=== PATIENT | female | born 1955 | race Caucasian/White ===

== ENCOUNTER 2021-11-12 14:42 | Outpatient (CLI) | payer MEDICARE, SELFPAY ==
--- NOTE | ~2021-11-12 | US_ITS ---
US abdomen limited DATE: 11/12/2021 15:16 INDICATION: Right upper quadrant intermittent abdominal pain TECHNIQUE: Real-time imaging and Doppler analysis of the abdomen including liver, pancreas, gallbladd er COMPARISON: None FINDINGS: No hepatic or pancreatic space-occupying mass lesion is detected. Normal hepatopedal portal venous flow direction. Approximately 5 mm or smaller 6 nonmobile nonshadowing filling defects of the gallbladder are noted, suggesting polyps. Otherwise no gallbladder wall thickening is noted. The common bile duct measures 3 mm, normal. IMPRESSION: Probable 5 mm or smaller gallbladder polyps Reviewed, dictated and finalized at Location A. Reviewed, dictated and finalized at location B. GEMENT QUALITY CONSULTANT
== END 2021-11-12 14:43 | disposition home or self-care (01) ==
PROVIDERS: PCP Family Medicine; Visit Provider Nurse Practitioner Gerontology
DX: R10.11 Right upper quadrant pain (principal)
CPT/HCPCS: 76705

== ENCOUNTER 2022-05-16 07:34 | Outpatient (CLI) | payer MEDICARE, SELFPAY ==
--- NOTE | ~2022-05-16 | US_ITS ---
US right upper quadrant INDICATION: Bladder pain. PROCEDURE: Realtime right upper abdominal ultrasound. COMPARISON: Ultrasound dated 11/12/2021 FINDINGS: The pancreas is normal without focal mass or pancreatic ductal dilation. Liver echotexture is normal without focal mass or intrahepatic biliary dilatation. There is normal directional flow i n the portal vein. There are multiple gallbladder polyps measuring 5 mm or less. Common bile duct measures 3.5 mm. No sonographic Fam's sign. IMPRESSION: 1: Gallbladder polyps measuring 5 mm or less. Reviewed, dictated and finalized at location A.
== END 2022-05-16 07:35 | disposition home or self-care (01) ==
PROVIDERS: PCP Family Medicine
DX: K82.4 Cholesterolosis of gallbladder (principal)
CPT/HCPCS: 76705

== ENCOUNTER 2022-10-26 12:26 | Outpatient (CLI) | payer MEDICARE, SELFPAY ==
--- NOTE | ~2022-10-26 | XR_ITS ---
XR shoulder RT min 2V DATE: 10/26/2022 12:53 INDICATION: Acquired deformity at the top of the shoulder TECHNIQUE: 4 views of right shoulder COMPARISON: None FINDINGS: There is mild degenerative spurring at the right acromioclavicular joint. No fracture or dislocation, periosteal reaction or bone destruction or abnormal soft tissue calcifica tion of the right shoulder. Degenerative spurring of the thoracic spine IMPRESSION: Mild degenerative change of the right acromioclavicular joint Reviewed, dictated and finalized at location B. F MERCHANDISING OFFICER
== END 2022-10-26 12:27 | disposition home or self-care (01) ==
PROVIDERS: PCP Family Medicine; Visit Provider Nurse Practitioner Gerontology
DX: M21.929 Unspecified acquired deformity of unspecified upper arm (principal); E78.5 Hyperlipidemia, unspecified; D70.9 Neutropenia, unspecified; M19.011 Primary osteoarthritis, right shoulder
CPT/HCPCS: 73030

== ENCOUNTER 2022-10-28 13:39 | Outpatient (CLI) | payer MEDICARE, SELFPAY ==
--- NOTE | ~2022-10-28 | DEXA_ITS ---
Bone Density Report Name: TAMIKO MARTNII Age: 67 Sex: Female Ethnicity: White Date of : 1955 Indication: postmenopausal; screening for osteoporosis; height loss; Referring Provider: LATANYA REEDER Study: Bone densitometry was performed. Exam Date: October 28, 2022 Accession number: [id number] Bone Density: Region BMD T-score Z-score Classification AP Spine(L1, L4) 1.186 1.4 3.3 Normal Femoral Neck (Left) 0.867 0.2 1.8 Normal Total Hip (Left) 1.076 1.1 2.5 Normal World Health Organization criteria for BMD impression classify patients as: Normal (T-score at or above -1.0), Osteopenia (T-score between -1.0 and -2.5), or Osteoporosis (T-score at or below -2.5). 10-year Fracture Risk: FRAX not reported because: All T-scores for Spine Total, Hip Total, Femoral Neck at or above -1.0 Clinical Information Provided by Patient: Patient maximum height was 66 Menopause Age: 55 Drinks caffeinated beverages Onset of menses at age 11 Number of children 2 Impression: The patient has normal bone mass. Discussion: BONE DENSITY IS ABOVE THE MINIMUM DESIRABLE LEVEL AT ALL SKELETAL SITES TESTED. This patient?s bone mineral density is above the minimum desirable level (T-score -1.0 or better) at all sites measured. The patient should follow a healthful lifestyle (good nutrition with adequate calcium and vitamin D, and appropriate weight-bearing exercise). Follow-Up: Consider repeating this study in 5 years or sooner if there is some new clinical indication. Reported by: MARGO on 10/28/2022 2:08:00 PM. Reviewed, dictated and finalized at location Nuha GROSS
== END 2022-10-28 13:40 | disposition home or self-care (01) ==
LOC: ANHIMG 13:43
PROVIDERS: PCP Family Medicine; Visit Provider Nurse Practitioner Gerontology
DX: Z78.0 Asymptomatic menopausal state (principal); E78.5 Hyperlipidemia, unspecified; D70.9 Neutropenia, unspecified
CPT/HCPCS: 77080

== ENCOUNTER 2023-06-19 09:26 | Outpatient (CLI) | payer MEDICARE, SELFPAY ==
--- NOTE | ~2023-06-19 | US_ITS ---
US right upper quadrant INDICATION: PROCEDURE: Realtime right upper abdominal ultrasound. COMPARISON: No prior studies for comparison. FINDINGS: The pancreas is normal without focal mass or pancreatic ductal dilation. Liver echotexture is normal without focal mass or intrahepatic biliary dilatation. There is normal directional flow i n the portal vein. There are multiple gallbladder polyps, largest measuring 5 mm. Common bile duct measures 7.7 mm. No sonographic Fam's sign. IMPRESSION: 1: Gallbladder polyps measuring up to 5 mm. 2: Mildly dilated common bile duct measuring 7.7 mm, nonspecific. Reviewed, dictated and finalized at location B.
== END 2023-06-19 09:27 | disposition home or self-care (01) ==
PROVIDERS: PCP Family Medicine
DX: K82.4 Cholesterolosis of gallbladder (principal)
CPT/HCPCS: 76705

== ENCOUNTER 2024-06-20 07:42 | Outpatient (CLI) | payer MEDICARE, SELFPAY ==
--- NOTE | ~2024-06-20 | US_ITS ---
EXAMINATION: US right upper quadrant DATE: 06/20/2024 08:53 INDICATION: Gallbladder polyps TECHNIQUE: Multiple grayscale and Doppler ultrasound images of the abdomen were obtained. COMPARISON: 06/19/2023 FINDINGS: The pancreatic head and body are normal in appearance. The pancreatic tail is not visualized. The vi sualized proximal to mid inferior vena cava and aorta are normal. Liver has normal echogenicity and c ontour, with a smooth surface. No liver lesion identified. No intrahepatic biliary duct dilation susp ected. Portal venous flow was seen in the hepatopetal, normal direction and has normal Doppler wavefo rm. Again seen are a few non shadowing gallbladder polyps measuring up to 6 mm in maximal diameter. N o evident shadowing cholelithiasis. There is increasing dilation the common bile duct which now measu res up to 1.4 cm in maximal diameter in the mid duct. The distal duct is obscured. IMPRESSION: 1. No significant interval change in a few small gallbladder polyps measuring up to 6 mm. 2. Increasing dilation the common bile duct now measuring up to 1.4 similar without evident cholelith iasis/choledocholithiasis. Correlate with liver function tests and could consider further evaluation with MRCP. Reviewed, dictated and finalized at location B. IMPRESSION: 1. No significant interval change in a few small gallbladder polyps measuring u p to 6 mm. 2. Increasing dilation the common bile duct now measuring up to 1.4 similar wit hout evident cholelithiasis/choledocholithiasis. Correlate with liver function tests and could consider further evaluation with MRCP.
== END 2024-06-20 07:43 | disposition home or self-care (01) ==
PROVIDERS: PCP Family Medicine
DX: K82.4 Cholesterolosis of gallbladder (principal)
CPT/HCPCS: 76705

== ENCOUNTER 2025-04-25 10:57 | Outpatient (CLI) | payer MEDICARE, SELFPAY ==
--- NOTE | ~2025-04-25 | XR_ITS ---
EXAM: XR hand LT 2V DATE: 04/25/2025 11:13 HISTORY: M79.645 - Pain in left finger(s) 4TH DIGIT, AFTER INJURY . COMPARISON: None available. FINDINGS: Decreased mineralization. No fracture or dislocation. No lytic or blastic lesion. Scattere d osteoarthritic changes, moderate at the first CMC joint and third DIP joint. No erosion or perioste al change. Soft tissues within normal limits. IMPRESSION: No acute osseous finding in the left hand. Reviewed, dictated and finalized at location K.
--- OUTSIDE RECORDS SUMMARY | 2025-04-25 11:03 | XMS_ITS | Encounter Summary ---
Author Organization [facility] Address [address] [place] [id number] Care Team Providers Care Financial Processing Clerk Name Role Phone Christelle Chambers MD Primary Care Provider [phone]- [phone] Encounter Details Date Type Department Care Team (Late st Contact Info) Description 03/31/2020 Prep for Procedure [facility] [address] [place], [place] [id number] Orestes Mena MD [address] [address] Social History Tobacco Use Types Packs/Day Years Used Date Smoking Tobacco: Never Smokeless Tobacco: Never Alcohol Use Standard Drinks/Week Comments Not Asked 0 (1 standard drink = 0.6 oz pur e alcohol) Occasionally Comments Unknown Sex and Gender Information Value Date Recorded Sex Assigned at Not on file Legal Sex Female 7:50 PM CDT Gender Identity Not on file Sexual Orientation Not on file COVID-19 Exposure Response Date Recorded In the last month, have you been in contact with someone who was confirmed or suspected to have Coronavirus / COVID-19? No / Unsure 03/19/2020 1:13 PM CDT documented as of this encounter Plan of Treatment Not on file documented as of this encounter Visit Diagnoses Diagnosis Preop testing- Primary Preoperative examination, unspecified documented in this encounter Additional Health Concerns Infection Onset Date Last Indicated Resolved Time COVID-19 Rule Out 04/07/2020 04/07/2020 04/07/2020 2:28 PM CDT documented as of this encounter Care Teams Financial Processing Clerk Relationship Specialty Start Date End Date Christelle Chambers MD [address] [facility] [address] [facility] [address] [place] [id number] PCP - General 02/27/17 documented as of this encounter
--- OUTSIDE RECORDS SUMMARY | 2025-04-25 11:03 | XMS_ITS | Clinical Summary ---
Author Organization [facility] Address [address] [place] [address] Care Team Providers Care Fabric Worker Leader Name Role Phone Christelle Mcfadden MD Primary Care Provider [phone]- [phone] Allergies Active Allergy Reactions Criticality Noted Date Comments Lisinopril Unknown 06/07/2021 Medications Eszopiclone 3 MG Tab Active esomeprazole 20 MG capsule Take 1 capsule (20 mg total) by mouth every morning before breakfast. Active losartan-hydroC HLOROthiazide 50-12.5 MG tablet Take 1 tablet by mouth daily. 05/30/2021 Active montelukast 10 MG tablet Take 1 tablet (10 mg total) by mouth daily. 05/13/2021 Active rosuvastatin 5 MG tablet TAKE 1 TABLET BY MOUTH EVERY EVENING WITH A EVENING MEAL 05/14/2021 Active aspirin EC (ECOTRIN) 81 MG tablet Take 1 tablet (81 mg total) by mouth daily. Active Turmeric (QC TUMERIC COMPLEX OR) Active MAGNESIUM GLUCONATE OR Active esomeprazole (NEXIUM) 20 MG capsuleIndicati ons:History of Maxwell's esophagus Take 1 capsule (20 mg total) by mouth 2 (two) times daily. 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 Overview (07/10/2023): Added automatically from request for surgery [id number] Screening for malignant neoplasm of colon 2019 Overview (03/20/2020): Added automatically from request for surgery [id number] Acid reflux 03/20/2020 Overview (03/20/2020): Added automatically from request for surgery [id number] Ankle mass, right 01/02/2019 Aftercare following right hip joint replacement surgery 01/02/2019 Osteoarthritis of right hip 01/01/2018 Right hip pain 12/05/2016 Family History Medical History Relation Comments Heart Disease Father hypertension Father Dementia Mother diverticulitis Sister mesenteric artery dx Sister Relation Status Comments Father Mother Sister Social History Tobacco Use Types Packs/Day Years Used Date Smoking Tobacco: Former Cigarettes Q uit: 11/1984 Smokeless Tobacco: Never Alcohol Use Standard Drinks/Week Comments Not Asked 0 (1 standard drink = 0.6 oz pur e alcohol) Occasionally PHQ-2 Answer Date Recorded Patient Health Questionnaire-2 Score 0 07/07/2023 Comments No Sex and Gender Information Value Date Recorded Sex Assigned at Not on file Legal Sex Female 7:50 PM CDT Gender Identity Not on file Sexual Orientation Not on file Last Filed Vital Signs Vital Sign Reading Time Taken Comments Blood Pressure 155/70 10/04/2023 8:45 AM ZIPPER LINING FOLDER Pulse 75 10/04/2023 8:25 AM ZIPPER LINING FOLDER Temperature 35.8 C (96.5 F) 10/04/2023 7:10 AM ZIPPER LINING FOLDER Respiratory Rate 18 10/04/2023 8:25 AM ZIPPER LINING FOLDER Oxygen Saturation 98% 10/04/2023 8:45 AM ZIPPER LINING FOLDER Inhaled Oxygen Concentration - - Weight 83.9 kg (185 lb) 09/25/2023 10:08 AM ZIPPER LINING FOLDER Height 167.6 cm (5' 6) 09/25/2023 10:08 AM ZIPPER LINING FOLDER Body Mass Index 29.86 09/25/2023 10:08 AM ZIPPER LINING FOLDER Plan of Treatment Health Maintenance Due Date Last Done Comments EGD-Maxwell's Surveillance 1955 Hepatitis C 1972 DTaP, Tdap and Td Vaccines (1 - Tdap) 1973 Pneumococcal Vaccine: 50+ Years (1 of 1 - PCV) 2004 Zoster Vaccines (1 of 2) 2004 Annual Medicare Wellness Visit 2019 Dexa Scan (General) 2019 COVID-19 Vaccine ( - 2023-25 season) 2024 PHQ-2 (Physician Byers) 10/09/2024 07/07/2023 Mammogram Screening 07/18/2026 07/18/2024, 07/12/2023, 06/20/2022, Additional history exists RSV Immunization or 60+ Years (1 - 1-dose 75+ series) 2029 Colorectal Cancer Screening Colonoscopy (10 Years) 04/08/2030 04/08/2020 Meningococcal B Vaccine Aged Out No l onger eligible based on patient's age to complete this topic Meningococcal Vaccine Aged Out No catie whitney eligible based on patient's age to complete this topic RSV Immunizations Under 20 Months Aged Out No longer eligible based on patient's age to complete this topic Medical Devices Implanted Type Area Senior Scrum Master Device Identifier Shelf Expiration Date Model / Serial / Lot Hip Components Hip Components Procedures Procedure Name Priority Date/Time Associated Diagnosis Comments MG SCREENING W FARRAH SHARDA DIGI Routine 07/18/2024 2:54 PM CDT Encounter for screening mammogram for malignant neoplasm of breast from Last 3 Months or Most Recently Relevant to Health Maintenance Results * MG SCREENING W FARRAH SHARDA DIGI (07/18/2024 2:54 PM CDT) Anatomical Region Laterality Modality Breast Bilateral Mammography 07/18/2024 4:12 PM CDT Impressions 07/18/2024 4:15 PM CDT ===== IMPRESSION: ===== 1. Stable mammographic appearance with no new findings to suggest malignancy in either breast. Assessment: ACR BI-RADS 2 - BENIGN FINDING(S) Recommendation: 1:Routine Screening Bilateral Comments: Ordered By: CHRISTELLE MCFADDEN Interpreted By: Fina Bello, 07/18/2024 4:12 PM Narrative 07/18/2024 4:15 PM CDT [facility] [address] [place] [address] EXAMINATION: Digital bilateral screening mammogram with 3-D tomosynthesis EXAM DATE/TIME: 07/18/2024 2:24 PM REASON FOR EXAM: SCREENING COMPARISON: 06/20/2022. 07/12/2023. Technique: Digital screening mammography of both breasts was performed in addition to 3-D Tomosynthesis technique. This study was read with the assistance of a computer-aided detection system. Tissue density: There are scattered areas of fibroglandular density. Findings: There is no new focal asymmetry, dominant mass lesion, area of skin thickening, or cluster of suspicious appearing calcifications in either breast to suggest malignancy. Christelle Mcfadden MD MAMMO Final Resu lt from Last 3 Months or Most Recently Relevant to Health Maintenance Insurance [facility] Care Teams Fabric Worker Leader Relationship Specialty Start Date End Date Christelle Mcfadden MD [address] [facility] [address] [place] [address] PCP - General 02/27/17
--- OUTSIDE RECORDS SUMMARY | 2025-04-25 11:04 | XMS_ITS | Clinical Summary ---
Author Organization [facility] Address [address] [address] Phone Care Team Providers Care English And Reading Instructor Name Role Phone Christelle Chambers MD Primary Care Provider Juan M Friedman MD Unavailable [phone] Allergies Active Allergy Reactions Criticality Noted Date Comments Lisinopril Swelling Medium 06/07/2021 Tongue and lip swelling Medications losartan-hydroC HLOROthiazide (HYZAAR) 50-12.5 mg per tablet Take 1 tablet by mouth daily 05/30/2021 Active montelukast (SINGULAIR) 10 mg tablet Take 1 tablet (10 mg total) by mouth daily 05/13/2021 Active aspirin 81 mg enteric coated tablet Take 1 tablet (81 mg total) by mouth daily Active eszopiclone (LUNESTA) 3 mg tablet Take 1 tablet (3 mg total) by mouth nightly as needed Active albuterol HFA (PROVENTIL HFA,VENTOLIN HFA,PROAIR HFA) 90 mcg/actuation inhaler Inhale 2 puffs every 6 (six) hours as needed for wheezing Active [id number] -Lmfolate-algal 27 mg iron-1.13 mg-581.92 mg capsule Take 1 tablet by mouth daily Active rosuvastatin (CRESTOR) 5 mg tablet TAKE 1 TABLET BY MOUTH EVERY EVENING WITH A EVENING MEAL 05/14/[address] (PROTONIX) 40 mg EC tablet Take 1 tablet (40 mg total) by mouth every morning Active phentermine 37.5 mg capsule Take 1 capsule (37.5 mg total) by mouth every morning Active oxyCODONE-aceta minophen (PERCOCET) 5-325 mg per tabletIndicatio ns:Pain Take 1-2 tablets by mouth every 6 (six) hours as needed for pain 8 tablet 02/19/2025 Active Active Problems Problem Noted Date Diagnosed Date Essential hypertension 06/07/2021 Resolved Problems Problem Noted Date Diagnosed Date Resolved Date LVH (left ventricular hypertrophy) 06/07/2021 01/30/2025 Encounters Date Type Department Care Team Description 02/19/2025 7:30 AM CDT - 02/19/2025 9:15 AM CDT Surgery [facility] [address] [place] [address] Juan M Friedman MD ROBOTIC ASSISTSED LAPAROSCOPIC CHOLECYSTECTOMY WITH INDOCYANINE GREEN 02/19/2025 7:27 AM CDT Anesthesia Event [facility] [address] [place] [address] Twan Gregg MD Halverstadt, Matthew Edward, MD 02/19/2025 5:34 AM CDT - 02/19/2025 10:24 AM CDT Hospital Encounter [facility] [address] [place] [address] Juan M Friedman MD Gallbladder polyp Discharge Disposition: Discharge to home or self care 02/10/2025 11:20 AM CDT Pre-Admission Testing [facility] Pre Admit Testing [address] [place] [address] Pre-op testing 02/07/2025 Orders Only [facility] Pre Admit Testing [address] [place] [address] Radha Jameson RN Pre-op testing (Primary Dx) from Last 3 Months Surgical History Surgery Date Site/Laterality Comments BUNIONECTOMY TOTAL HIP ARTHROPLASTY Right Medical History Medical History Date Comments Hypertension Hyperlipidemia Acid indigestion Arthritis Gout LVH (left ventricular hypertrophy) 06/07/2021 Essential hypertension 06/07/2021 Motion sickness Allergic rhinitis Family History Medical History Relation Name Comments Atrial fibrillation Father Peripheral vascular disease Father Kidney disease Mother Mesentenic artery disease Sister 1 Relation Name Status Comments Father (Age 80) Mother (Age 83) Sister 1 (Age 41) Sister 2 (Age 69) Sister 3 (Age 77) Social History Tobacco Use Types Packs/Day Years Used Date Smoking Tobacco: Former Cigarettes Q uit: 1985 Smokeless Tobacco: Never Tobacco Cessation:Counseling Given: Not Answered AUDIT-C Answer Date Recorded Q1: How often do you have a drink containing alc ohol? Monthly or less 02/19/2025 Q2: How many drinks containi ng alcohol do you have on a typical day when you are drinking? 1 or 2 02/19/2025 Q3: How often do you have si x or more drinks on one occasion? Never 02/19/2025 Personal Safety Answer Date Recorded Have you ever been in or are you currently in a harmful physical or emotional relationship or is someone making you feel afraid or unsafe? 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 Gender Identity Not on file Sexual Orientation Not on file Obstetrics History Last Filed Vital Signs Vital Sign Reading Time Taken Comments Blood Pressure 153/88 02/19/2025 10:15 AM CDT Pulse 65 02/19/2025 10:15 AM CDT Temperature 36.4 C (97.5 F) 02/19/2025 9:30 AM CDT Respiratory Rate 16 02/19/2025 10:15 AM CDT Oxygen Saturation 98% 02/19/2025 10:15 AM CDT Inhaled Oxygen Concentration - - Weight 87.5 kg (193 lb) 02/19/2025 5:49 AM CDT Height 167.6 cm (5' 6) 02/19/2025 5:49 AM CDT Body Mass Index 31.15 02/19/2025 5:49 AM CDT Plan of Treatment Health Maintenance Due Date Last Done Comments Colon Cancer Screening-Colonoscopy 1955 Depression Screening 1955 Fall Risk Assessment 1955 Hepatitis C Screening 1955 Osteoporosis Screening-Bone Density Scan 1955 DTaP/Tdap/Td Vaccine (1 - Tdap) 1965 Hepatitis B Screening 1972 Pneumococcal vaccine 65+ (1 of 1 - PCV) 2004 Zoster Vaccine (1 of 2) 2004 Well Visit 65+ 2019 Influenza Vaccine (#1) 2025 06/24/2020 Breast Cancer Screening-Mammogram 07/18/2025 07/18/2024, 07/18/2024, 07/12/2023, Additional history exists Procedures Procedure Name Priority Date/Time Associated Diagnosis Comments SURGICAL PATHOLOGY Routine 02/19/2025 7: 58 AM CDT Gallbladder polyp FL AN PROCEDURE PLACEHOLDER Routine 02/19/2025 7:53 AM CDT FL AN ELECTIVE ENDOTRACHEAL AIRWAY Routine 02/19/2025 7:53 AM CDT XI CHOLECYSTECTOMY, MULTIPORT - LAPAROSCOPIC ROBOTIC 02/19/2025 7:27 AM CDT GALLBLADDER POLYP EGFR Routine 02/10/2025 11:44 AM CDT Pre-op testing BASIC METABOLIC PANEL Routine 02/10/2025 11:44 AM CDT Pre-op testing ECG 12-LEAD Routine 02/10/2025 11:43 AM CDT Pre-op testing from Last 3 Months Results * Surgical pathology (02/19/2025 7:58 AM CDT) Tissue (Gallbladder) 02/19/2025 7:58 AM CDT Narrative PATHOLOGY [facility] - 02/21/2025 5:53 PM CDT [facility] Department of Pathology [address] [place] [address] Note to Patients: This report may contain a detailed description of human tissue sent by a health care provider to the laboratory for pathologic evaluation. The content of this report is essential for diagnosis and may provide important critical findings. This information may be unfamiliar to patients to review without a medical professional present. It is advised that the patient review this report in the presence of a health care provider who can answer questions and explain the details. Final Report Patient Name: KANDIS MARTINI : 1955 (Age: 69) Gender: F Address: [address] [place] [address] Hospital #: [id number] Service: Surgery Location: Patient Type: [facility] OUTPATIENT Taken: 02/19/2025 Received: 02/19/2025 Accessioned: 02/19/2025 Reported: 02/21/2025 Physician(s): Jorge Lopez M.D. Diagnosis: Gallbladder, cholecystectomy: -Cholesterol polyps; negative for dysplasia or carcinoma. Melissa Ramirez MD, PHD Report Electronically Reviewed and Signed Out By Melissa Ramirez MD, PHD 02/21/2025 17:53:24 Specimen(s) Received: A: Gallbladder Microscopic Description: Unless gross-only is specified, the final diagnosis for each specimen is based on a microscopic examination of each tissue sample. Clinical History: The patient is a 69-year-old woman with a gallbladder polyp. Operative procedure: robotic assisted laparoscopic cholecystectomy. Gross Description Received in a single formalin filled container labeled with the patient's identifiers and gallbladder is an 8.4 x 3.4 x 3.3 cm intact gallbladder with a glistening, purple-benítez serosa and stapled cystic duct. The wall thickness measures 0.1-0.2 cm and the mucosa is green and velvety with multiple (approximately 30) nodular, yellow polyps in the body and neck, ranging in diameter from 0.1 to 0.4 cm. There are no stones located within the gallbladder or specimen container. Labeled A1 including cystic duct margin, representing multiple polyps. Jar 1. mns2/02/19/2025 12:11 Dionne Gonzalez MS, PA (ASC Microscopic slide review and interpretation for this case was performed at [facility], Department of Surgical Pathology, [address] [facility] [address], [id number], [place] [address] CLIA # [id number] us Juan M Friedman MD LAB PATHOLOGY ORDERABLES Fin al Result PATHOLOGY [facility] * FL AN ELECTIVE ENDOTRACHEAL AIRWAY, FL AN PROCEDURE PLACEHOLDER (02/19/2025 7:53 AM CDT) Narrative Susi Fuentes CRNA - 02/19/2025 7:53 AM CDT Susi Fuentes CRNA 02/19/2025 7:54 AM Airway Patient location: OR Urgency: elective Date/time: 02/19/2025 7:33 AM Indications for airway management: anesthesia Difficult airway: no Staff: Supervising provider: Twan Gregg MD Placed by: CONSTRUCTION TEACHER: Susi Fuentes CRNA Emergent airway documentation: Risks and benefits discussed: yes Consent obtained: yes Consent given by: patient Airway prep: Preoxygenated: yes Patient position: sniffing Mask difficulty assessment: 2 - vent by mask + OA or adjuvant Spontaneous ventilation during airway: absent Sedation level during airway: deep Final airway details: Final airway type: endotracheal airway Tube type: ETT ETT size: 7.0 mm Cuffed: yes Technique used for successful ETT placement: direct laryngoscopy Devices/Methods used in placement: intubating stylet and cricoid pressure (for visualization) Insertion site: oral Blade type: Sugar Blade size: 3 Cormack-Lehane (direct): grade IIa - partial view of glottis Cuff volume: 8 mL Cuff inflated with: air Placement verified by: auscultation and CO2 detection Airway secured with: other (pink tape) Number of attempts: 1 Additional comments: No change in dentition from preoperative status. us Twan Gregg MD ANESTHESIA ORDERABLES Final Re sult * eGFR (02/10/2025 11:44 AM CDT) eGFR >90 >=60 mL/min/1. 73 m2 Comment: Interpretive Data Reference Interval Normal >/= 90 mL/min/1.73m2 Mildly decreased* 60 - 89 mL/min/1.73m2 Mildly to moderately decreased 45 - 59 mL/min/1.73m2 Moderately to severely decreased 30 - 44 mL/min/1.73m2 Severely decreased 15 - 29 mL/min/1.73m2 Kidney Failure < 15 mL/min/1.73m2 *Relative to young adult level Estimated glomerular filtration rate is determined by the 2021 CKD-EPI equation recommended by the National Kidney Foundation (A Unifying Approach to GFR Estimation: Recommendations of the NKF-ASK Task Force on Reassessing the Inclusion of Race in Diagnosing Kidney Disease, JASN 202). The CKD-EPI equation should not be used for patients with unstable renal function and has not been validated in children and those over 70. Current interpretive data was last reviewed 2021. Testing performed by: [address] [address] Blood 02/10/2025 11:4 4 AM CDT 02/10/2025 11:54 AM CDT us Jesu Ya DO LAB BLOOD ORDERABLES Final Re sult [facility] [address] [facility] Department [place] [address] * Basic metabolic panel (02/10/2025 11:44 AM CDT) Sodium 140 135 - 145 mmol/L Comment:Testing performed by : [address] [address] Potassium, pl 3.9 3.3 - 4.9 mmol/L ALYCE Comment:Testing performed by : [address] [address] Chloride 104 97 - 110 mmol/L ALYCE Comment:Testing performed by : [address] [address] CO2 24 22 - 32 mmol/L ALYCE Comment:Testing performed by : [address] [address] Anion gap 12 2 - 15 mmol/L ALYCE Comment:Testing performed by : [address] [address] BUN 10 6 - 25 mg/dL ALYCE Comment:Testing performed by : [address] [address] Creatinine 0.70 0.60 - 1.10 mg/dL ALYCE Comment:Testing performed by : [address] [address] Glucose 94 70 - 199 mg/dL ALYCE Comment: Interpretive Data Fasting glucose >/= 126 mg/dl is diagnostic for diabetes. Fasting is defined as no caloric intake for at least 8 hours. Fasting glucose between 100 mg/dl to 125 mg/dl is diagnostic of prediabetes. In a patient with classic symptoms of hyperglycemia or hyperglycemic crisis, a random glucose >/= 200 mg/dl is diagnostic for diabetes. In the absence of unequivocal hyperglycemia, results should be confirmed by repeat testing. The classification and Diagnosis of Diabetes Diabetes Care 2021; 46: S19-S40. Current interpretive data was last revised 2022. Testing performed by: [facility], [address] [place] [address]., [address] Calcium 9.7 8.5 - 10.3 mg/dL ALYCE Comment:Testing performed by : [address] [address] Blood 02/10/2025 11:4 4 AM CDT 02/10/2025 11:54 AM CDT us Jesu Ya DO LAB BLOOD ORDERABLES [facility] [address] [facility] Department [place] [address] * ECG 12 lead (02/10/2025 11:43 AM CDT) Ventricular Rate EKG/Min 65 BPM [facility] Atrial Rate 65 BPM [facility] FL-Interval (MSEC) 144 ms [facility] QRS-Interval (MSEC) 92 ms [facility] QT-Interval (MSEC) 418 ms [facility] QTc 434 ms [facility] P [place] 44 degrees [facility] R [place] -13 degrees [facility] T [place] -6 degrees [facility] Diagnosis Normal sinus rhythm RSR' or QR pattern in V1 suggests right ventricular conduction delay Voltage criteria for left ventricular hypertrophy T-wave changes No previous ECGs available Confirmed by SULTAN BOLAÑOS M.D. ([id number]) on 02/10/2025 5:42:40 PM [facility] 02/10/2025 11:4 3 AM CDT 02/10/2025 5:42 PM CDT Jesu Ya DO ECG ORDERABLES Final Result [facility] from Last 3 Months Insurance MEDICARE ADVANTAGE MEDICARE ADVANTAGE MEDICARE ADVANTAGE Care Teams English And Reading Instructor Relationship Specialty Start Date End Date Christelle Chambers MD [address] [place] [address] PCP - General Family Medicine 05/20/21 Juan M Friedman MD [address] [place] [address] Consulting Physician General Surgery 02/19/25
--- OUTSIDE RECORDS SUMMARY | 2025-04-25 11:04 | XMS_ITS | Referral Summary ---
Author Organization [facility] Address [address] [address] Phone Care Team Providers Care Commercial Account Executive Name Role Phone Christelle Chambers MD Primary Care Provider Juan M Friedman MD Unavailable [phone] Encounters Date Type Department Care Team Description 02/19/2025 7:30 AM CDT - 02/19/2025 9:15 AM CDT Surgery [facility] [place] [address] [place] [address] Juan M Friedman MD ROBOTIC ASSISTSED LAPAROSCOPIC CHOLECYSTECTOMY WITH INDOCYANINE GREEN 02/19/2025 7:27 AM CDT Anesthesia Event [facility] [place] [address] [place] [address] Twan Gregg MD Halver[place], Matthew Edward, MD 02/19/2025 5:34 AM CDT - 02/19/2025 10:24 AM CDT Hospital Encounter [facility] [place] [address] [place] [address] Juan M Friedman MD Gallbladder polyp Discharge Disposition: Discharge to home or self care 02/10/2025 11:20 AM CDT Pre-Admission Testing [facility] Pre Admit Testing [address] [place] [address] Pre-op testing 02/07/2025 Orders Only [facility] Pre Admit Testing [address] [place] [address] Radha Jameson RN Pre-op testing (Primary Dx) from Last 3 Months Allergies Active Allergy Reactions Criticality Noted Date [...] (six) hours as needed for wheezing Active xtopkgue67-ducw -Lmfolate-algal 27 mg iron-1.13 mg-581.92 mg capsule [...] Date LVH (left ventricular hypertrophy) 06/07/2021 01/30/2025 Social History Tobacco Use Types Packs/Day Years Used Date Smoking Tobacco: Former Cigarettes Q uit: 1984 Smokeless Tobacco: Never Tobacco Cessation:Counseling Given: Not [...] on file 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 Gender Identity Not on file Sexual Orientation [...] 02/19/2025 5:49 AM CDT Plan of Treatment Not on file Procedures Procedure Name Priority Date/Time Associated Diagnosis Comments SURGICAL PATHOLOGY Routine 02/19/2025 7: 58 AM CDT Gallbladder polyp SC AN PROCEDURE PLACEHOLDER Routine 02/19/2025 7:53 AM CDT SC AN ELECTIVE ENDOTRACHEAL AIRWAY Routine 02/19/2025 7:53 [...] (Gallbladder) 02/19/2025 7:58 AM CDT Narrative PATHOLOGY [facility] - 02/21/2025 5:53 PM CDT [facility] Department of Pathology [address] [place] [address] Note to Patients: This report may contain [...] : 1955 (Age: 69) Gender: F Address: [address] [place] [address] Hospital #: [id number] Service: Surgery Location: Patient Type: [facility] OUTPATIENT Taken: 02/19/2025 Received: 02/19/2025 Accessioned: 02/19/2025 [...] interpretation for this case was performed at [facility], Department of Surgical Pathology, [address] [facility] [address], [id number], [place] [id number] CLIA # [id number] us Juan M Friedman MD LAB PATHOLOGY ORDERABLES Fin al Result PATHOLOGY [facility] * SC AN ELECTIVE ENDOTRACHEAL AIRWAY, SC AN PROCEDURE PLACEHOLDER (02/19/2025 7:53 AM CDT) Narrative Susi Fuentes CRNA - 02/19/2025 7:53 AM CDT Susi Fuentes CRNA 02/19/2025 7:54 AM Airway Patient location: OR Urgency: elective Date/time: 02/19/2025 7:33 AM Indications for airway management: anesthesia Difficult airway: no Staff: Supervising provider: Twan Gregg MD Placed by: PHARMACOGENETICIST: Susi Fuentes CRNA Emergent airway documentation: Risks [...] glomerular filtration rate is determined by the 2020 CKD-EPI equation recommended by the National Kidney Foundation (A Unifying Approach to GFR Estimation: Recommendations of the NKF-ASK Task Force on Reassessing the Inclusion of Race in Diagnosing Kidney Disease, JASN 2020). The CKD-EPI equation should not be used for patients with unstable renal function and has not been validated in children and those over 70. Current interpretive data was last reviewed 2021. Testing performed by: [address] [address] Blood 02/10/2025 11:4 4 AM CDT 02/10/2025 11:54 AM CDT us Jesu Ya DO LAB BLOOD ORDERABLES Final [facility]ult [facility] [address] [facility] [place] [address] * Basic metabolic panel (02/10/2025 11:44 AM CDT) Sodium 140 135 - 145 mmol/L Comment:Testing performed by : [address] [address] Potassium, pl 3.9 3.3 - 4.9 mmol/L [facility] JACKSON Comment:Testing performed by : [address] [address] Chloride 104 97 - 110 mmol/L ALYCE Comment:Testing performed by : [address] [address] CO2 24 22 - 32 mmol/L ALYCE Comment:Testing performed by : [address] [address] Anion gap 12 2 - 15 mmol/L [facility]YCE Comment:Testing performed by : [address] [address] BUN 10 6 - 25 mg/dL ALYCE Comment:Testing performed by : [address] [address] Creatinine 0.70 0.60 - 1.10 mg/dL ALYCE Comment:Testing performed by : [address] [address] Glucose 94 70 - 199 mg/dL ALYCE [...] was last revised 2022. Testing performed by: [address] [address] Calcium 9.7 8.5 - 10.3 mg/dL [facility]YCE Comment:Testing performed by : [address] [address] Blood 02/10/2025 11:4 4 AM CDT 02/10/2025 11:54 AM CDT us Jesu Ya DO LAB BLOOD ORDERABLES Final Re sult [facility]ACK[facility] [address] [place] [address] * ECG 12 lead (02/10/2025 11:43 AM CDT) Ventricular Rate EKG/Min 65 BPM [facility] Atrial Rate 65 BPM [facility] SC-Interval (MSEC) 144 ms [facility] QRS-Interval (MSEC) 92 ms [facility] QT-Interval (MSEC) 418 ms [facility] QTc 434 ms [facility] P [place] 44 degrees [facility] R [place] -13 degrees [facility] T [place] -6 degrees [facility] Diagnosis Normal sinus rhythm RSR' or QR pattern in V1 suggests right ventricular conduction delay Voltage criteria for left ventricular hypertrophy T-wave changes No previous ECGs available Confirmed by SULTAN BOLAÑOS M.D. ([id number]) on 02/10/2025 5:42:40 PM [facility] 02/10/2025 11:4 3 AM CDT 02/10/2025 5:42 PM CDT us Jesu Ya DO ECG ORDERABLES Final Result [facility] from Last 3 Months Insurance [facility] MEDICARE ADVANTAGE [facility] Address: [facility] [address] [place] [address] [facility] MEDICARE ADVANTAGE [facility] Address: [address] [address] [place] [address] [facility] MEDICARE ADVANTAGE [facility] Address: [facility] [address] [place] [address] Care Teams Commercial Account Executive Relationship Specialty Start Date End Date Christelle Chambers MD [address] [place] [address] PCP - General Family Medicine 05/20/21 Juan M Friedman MD [facility] [address] Consulting Physician General Surgery 02/19/25
== END 2025-04-25 10:58 | disposition home or self-care (01) ==
PROVIDERS: PCP Family Medicine; Visit Provider Student in an Organized Health Care Education/Training Program
DX: M79.645 Pain in left finger(s) (principal)
CPT/HCPCS: 73120

== ENCOUNTER 2025-09-10 13:01 | Outpatient (CLI) | payer MEDICARE, SELFPAY ==
--- NOTE | ~2025-09-10 | US_ITS ---
EXAMINATION: US soft tissue groin RT, 09/10/2025 13:03 EMPLOYEE RELATIONS DIRECTOR HISTORY: R22.41 - Localized swelling, mass and lump, right lower limb Comparison: None Technique: Pacheco-scale and color Doppler images were obtained. Findings: Correlating with the palpable area there is a large complex solid focus measuring 12.2 x 4.7 x 11 cm with no increased flow. IMPRESSION: Complex solid-appearing lesion possibly a hematoma however other etiologies including neoplasm are not excluded. Clinical correlation is required. Contrast-enhanced CT or MRI is recommended Reviewed, dictated and finalized at location P. OYEE RELATIONS DIRECTOR IMPRESSION: Complex solid-appearing lesion possibly a hematoma however other et iologies including neoplasm are not excluded. Clinical correlation is required. Contrast-enhanced CT or MRI is recommended
== END 2025-09-10 13:02 | disposition home or self-care (01) ==
LOC: MICIMG 13:01
PROVIDERS: PCP Family Medicine; Visit Provider Student in an Organized Health Care Education/Training Program
DX: R22.41 Localized swelling, mass and lump, right lower limb (principal)
CPT/HCPCS: 76882

== ENCOUNTER 2025-09-10 15:52 | Outpatient (CLI) | payer MEDICARE, SELFPAY ==
--- NOTE | ~2025-09-10 | CT_ITS ---
EXAMINATION: CT femur RT w con COMPARISON: None HISTORY: R22.41 - Localized swelling, mass and lump, right lower limb TECHNIQUE: Axial images were obtained with IV contrast. Sagittal, coronal reconstruction images were obtained from the axial views. Omnipaque 370, [address] scan performed using dose optimization techniques including the following automated exposure control; adjustment of mA and/or kV; use of iterative reconstruction technique. Automatic exposure control was used to reduce radiation dose. Permanent radiation dose record is archived to PACS. FINDINGS: Moderate degenerative changes of the visualized lumbar spine and sacroiliac joints. Right arthroplasty appears intact. There is no acute fracture or dislocation. No lucency surrounding the hardware. Moderate degenerative changes of the knee joint The intrapelvic soft tissues appear unremarkable. The uterus is atrophic. There is no adnexal mass. Within the right obturator externus muscle there is abnormal density, artifact limits evaluation however the largest focus measures 6 x 4 cm. Within the proximal upper thigh similar-appearing abnormal density is noted in the anterior compartment of the thigh with the largest focus of abnormal density in the intramuscular location measuring 6.8 x 6 cm. Mild rim enhancement is noted although there is no air identified. There is no joint effusion demonstrated. No subcutaneous fluid collection. No subcutaneous air. No radiopaque foreign bodies are identified. IMPRESSION: Intramuscular areas of abnormal density detailed above which may reflect sequelae of previous trauma and resolving hemorrhage however clinical correlation is required, other etiologies are not excluded. If there is a history of fever these may represent abscesses. Neoplasm is considered unlikely but not excluded. Contrast-enhanced MRI is recommended to assess Reviewed, dictated and finalized at location P. CTOR OF DATABASE MARKETING IMPRESSION: Intramuscular areas of abnormal density detailed above which may re flect sequelae of previous trauma and resolving hemorrhage however clinical cor relation is required, other etiologies are not excluded. If there is a history of fever these may represent abscesses. Neoplasm is considered unlikely but not excluded. Contrast-enhanced MRI is recommended to assess
[2025-09-10 16:59] LABS: Estimated Glomerular Filt Rate > 60
--- OUTSIDE RECORDS SUMMARY | 2025-09-10 16:59 | XMS_ITS | Clinical Summary ---
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 Overview (07/10/2023): Added automatically from request for surgery [id number] Screening for malignant neoplasm of colon 2019 Overview (03/20/2020): Added automatically from request for surgery [id number] Acid reflux 03/20/2020 Overview (03/20/2020): Added automatically from request for surgery [id number] Ankle mass, right 01/02/2019 Aftercare following right hip joint replacement surgery 01/02/2019 Osteoarthritis of right hip 01/01/2018 Right hip pain 12/05/2016 Encounters Date Type Department Care Team Description 09/08/2025 Telephone [facility] [address] [place] [id number] Orestes Mena MD Surgery Questions; Question 07/21/2025 11:53 AM CDT - 07/21/2025 11:59 PM CDT Hospital Encounter [facility] [address] Christelle Chambers MD Discharge Disposition: Home or Self Care (Routine Discharge) 07/21/2025 Travel from Last 3 Months Family History Medical History Relation Comments Heart [...] Information Value Date Recorded Sex Assigned at Female 07/21/2025 11:53 AM CDT Legal Sex Female 7:50 PM CDT Gender Identity Not on file Sexual Orientation Not on file Last Filed Vital Signs Vital Sign Reading Time Taken Comments Blood Pressure 155/70 10/04/2023 8:45 AM SR. VENDOR MANAGEMENT ASSOCIATE Pulse 75 10/04/2023 8:25 AM SR. VENDOR MANAGEMENT ASSOCIATE Temperature 35.8 C (96.5 F) 10/04/2023 7:10 AM SR. VENDOR MANAGEMENT ASSOCIATE Respiratory Rate 18 10/04/2023 8:25 AM SR. VENDOR MANAGEMENT ASSOCIATE Oxygen Saturation 98% 10/04/2023 8:45 AM SR. VENDOR MANAGEMENT ASSOCIATE Inhaled Oxygen Concentration - - Weight 83.9 kg (185 lb) 09/25/2023 10:08 AM SR. VENDOR MANAGEMENT ASSOCIATE Height 167.6 cm (5' 6) 09/25/2023 10:08 AM SR. VENDOR MANAGEMENT ASSOCIATE Body Mass Index 29.86 09/25/2023 10:08 AM SR. VENDOR MANAGEMENT ASSOCIATE Plan of Treatment Upcoming Encounters Date Type Department Care Team (Late st Contact Info) Description 04/01/2026 11:20 AM CDT Office Visit [facility] [address] [address] Antonina Erickson, NADIYA [address] [address] Health Maintenance Due Date Last Done Comments EGD-Maxwell's Surveillance 1955 Hepatitis C 1972 DTaP, Tdap and Td Vaccines (1 - Tdap) 1973 Pneumococcal Vaccine: 50+ Years (1 of 1 - PCV) 2004 Zoster Vaccines (1 of 2) 2004 Annual Medicare Wellness Visit 2019 Dexa Scan (General) 2019 PHQ-2 (Physician [place]) 10/09/2024 COVID-19 Vaccine (1 - season) 2025 Influenza Adult (#1) 2025 Mammogram Screening 07/21/2027 07/21/2025, 07/18/2024, 07/12/2023, Additional history exists RSV Immunization or 60+ Years (1 - 1-dose 75+ series) 2029 Colorectal Cancer Screening Colonoscopy (10 Years) 04/08/2030 04/08/2020 Hepatitis A Vaccines Aged Out No long er eligible based on patient's age to complete this topic Meningococcal B Vaccine Aged Out No l onger eligible based on patient's age to complete this topic Meningococcal Vaccine Aged Out No catie whitney eligible based on patient's age to complete this topic RSV Immunizations Under 20 Months Aged Out No longer eligible based on patient's age to complete this topic Medical Devices Implanted Type Area Packager And Strapper Device Identifier Shelf Expiration Date Model / Serial / Lot Hip Components Hip Components Procedures Procedure Name Priority Date/Time Associated Diagnosis Comments MG SCREENING W FARRAH SHARDA DIGI Routine 07/21/2025 12:08 PM CDT Encounter for screening mammogram for malignant neoplasm of breast from Last 3 Months Results * MG SCREENING W FARRAH SHARDA DIGI (07/21/2025 12:08 PM CDT) Anatomical Region Laterality Modality Breast Bilateral Mammography 07/21/2025 12:1 8 PM CDT Impressions 07/21/2025 12:19 PM CDT IMPRESSION: No suspicious mammographic findings. Recommendation: 1. Routine Screening, Bilateral Assessment: ACR BI-RADS 2 - BENIGN FINDING(S) Ordered By: PELON BURT Interpreted By: Roberto Vickers, 07/21/2025 12:18 PM Narrative 07/21/2025 12:19 PM CDT [facility] [address] [place] [address] Examination: Screening bilateral mammogram Exam Date/Time: 07/21/2025 11:57 AM Clinical history: No current complaints. Comparison: 07/18/2024 Technique: Digital screening mammography of both breasts was performed. Breast tomosynthesis acquisitions were obtained and reviewed. This study was read with the assistance of a computer-aided detection system. Tissue density: There are scattered areas of fibroglandular density. Findings: No suspicious masses, malignant appearing calcifications, skin thickening or other abnormalities are present. No significant change from the prior exam. Pelon Burt MD MAMMO Final Result from Last 3 Months Insurance [facility] MEDICARE Care Teams Log Rafter Relationship Specialty Start Date End Date Christelle Chambers MD [address] [facility] [address] [facility] [address] [place] [address] PCP - General 02/27/17
--- OUTSIDE RECORDS SUMMARY | 2025-09-10 16:59 | XMS_ITS | Clinical Summary ---
Author Organization [facility] Address [address] [address] Phone Care Team Providers Care Conflict Resolution Professional Name Role Phone Christelle Chambers MD Primary Care Provider Juan M Friedman MD Unavailable [phone] Allergies Active Allergy Reactions Criticality Noted Date [...] (six) hours as needed for wheezing Active [id number] -Lmfolate-algal 27 mg iron-1.13 mg-581.92 mg capsule [...] Date LVH (left ventricular hypertrophy) 06/07/2021 01/30/2025 Surgical History Surgery Date Site/Laterality Comments BUNIONECTOMY [...] on file Legal Sex Female 7:29 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
--- OUTSIDE RECORDS SUMMARY | 2025-09-10 16:59 | XMS_ITS | Encounter Summary ---
Author Organization [facility] Address [address] [place] [address] Care Team Providers Care Drapery Seamstress Name Role Phone Christelle Chambers MD Primary Care Provider [phone] Encounter Details Date Type Department Care Team ([facility] Contact Info) Description 03/31/2020 Prep for Procedure [facility] [address] [place] [address] Orestes Mena MD [address] [place] [address] Social History Tobacco Use Types Packs/Day Years [...] as of this encounter Plan of Treatment Upcoming Encounters Date Type Department Care Team (Late Contact Info) Description 04/01/2026 11:20 AM CDT Office Visit [facility] [address] [address] Antonina Erickson, NADIYA 3 [facility] [address] [place] [address] documented as of this encounter Visit Diagnoses Diagnosis Preop testing- Primary Preoperative examination, unspecified documented in this encounter Additional Health Concerns Infection Onset Date Last Indicated Resolved Time COVID-19 Rule Out 04/07/2020 04/07/2020 04/07/2020 2:28 PM CDT documented as of this encounter Care Teams Drapery Seamstress Relationship Specialty Start Date End Date Christelle Chambers MD [address] [facility] [address] [place] [address] PCP - General 02/27/17 documented as of this encounter
--- OUTSIDE RECORDS SUMMARY | 2025-09-10 16:59 | XMS_ITS | Data Portability ---
Author Organization [facility] Address [address] [place] [address] Care Team Providers Care Occupational Health Nursing Director Name Role Phone DAVID MCFADDEN Primary Care Provider Assessment No assessment recorded. Plan of Treatment Reminders Order Date Submit Date Provider Last Modified By Organization Details Last Modified Time Details Appointments None recorded. Lab None recorded. Referral None recorded. Procedures None recorded. Surgeries None recorded. Imaging None recorded. Medication Orders phentermine 37.5 mg tablet 2024 025 [facility] [id number], [address], 5 10:55:09 Zepbound 2.5 mg/0.5 mL subcutaneou s pen injector 2023 025 [facility] [id number], [address], 5 11:23:07 phentermine 37.5 mg tablet 2023 024 [facility] [id number], [address], 5 10:55:09 Zepbound 2.5 mg/0.5 mL subcutaneou s pen injector 2023 024 [facility] [id number], [address], 5 11:23:05 phentermine 37.5 mg tablet 2023 024 [id number], [address], [place], [address], 5 10:55:09 Patient TargetsNo targets recorded. Patient InstructionsNo instructions recorded. Reason for Referral None Reported. Results Created Date Observation Date Name Description Value Unit Range Abnormal Flag Note LastModifiedBy Organization Detail LastModifiedTime 03/27/20 25 03/27/2025 CBC W/DIF F WBC 4.4 10'3/ uL 3.5-10 .5 Not Available [facility] (Lab) [address], [place], [address], 04/03/2025 04:30:43 03/27/20 25 03/27/2025 CBC W/DIF F RBC 4.36 10'6/ uL (based on docume nted legal sex) 3.80-5 .20 Not Available [facility] (Lab) [address], [place], [address], 04/03/2025 04:30:43 03/27/20 25 03/27/2025 CBC W/DIF F HGB 12.9 g/dL (based on docume nted legal sex) 11.6-1 5.4 Not Available [facility] (Lab) [address], [place], [address], 04/03/2025 04:30:43 03/27/20 25 03/27/2025 CBC W/DIF F HCT 40.2 % (based on docume nted legal sex) 34.0-4 5.0 Not Available [facility] (Lab) [address], [place], [address], 04/03/2025 04:30:43 03/27/20 25 03/27/2025 CBC W/DIF F MCV 92.2 fL 80.0-9 9.0 Not Available [facility] (Lab) [address] [facility], [place], [address], 04/03/2025 04:30:43 03/27/20 25 03/27/2025 CBC W/DIF F MCH 29.6 pg 27.0-3 4.0 Not Available [facility] (Lab) [address] [facility], [place], [address], 04/03/2025 04:30:43 03/27/20 25 03/27/2025 CBC W/DIF F MCHC 32.1 g/dL 32.0-3 5.5 Not Available [facility] (Lab) [address] [facility], [place], [address], 04/03/2025 04:30:43 03/27/20 25 03/27/2025 CBC W/DIF F RDW 12.8 % 11.0-1 5.0 Not Available [facility] (Lab) [address] [facility], [place], [address], 04/03/2025 04:30:43 03/27/20 25 03/27/2025 CBC W/DIF F plt 296 10'3/ uL 150-40 0 Not Available [facility] (Lab) [address] [facility], [place], [address], 04/03/2025 04:30:43 03/27/20 25 03/27/2025 CBC W/DIF F MPV 9.2 fL 8.8-12 .1 Not Available [facility] (Lab) [address] [facility], [place], [address], 04/03/2025 04:30:43 03/27/20 25 03/27/2025 CBC W/DIF F NRBC's 0.0 % 0.0 Not Available [facility] (Lab) [address] [facility], [place], [address], 04/03/2025 04:30:43 03/27/20 25 03/27/2025 CBC W/DIF F absolute NRBCs 0.0 10'3/ uL no refere nce range establ ished Not Available [facility] (Lab) [address] [facility], [place], [address], 04/03/2025 04:30:43 03/27/20 25 03/27/2025 CBC W/DIF F neutrophils 60.5 % 34.0-7 3.0 Not Available [facility] (Lab) [address] [facility], [place], [address], 04/03/2025 04:30:43 03/27/20 25 03/27/2025 CBC W/DIF F lymphocytes 24.5 % 15.0-5 0.0 Not Available [facility] (Lab) [address] [facility], [place], [address], 04/03/2025 04:30:43 03/27/20 25 03/27/2025 CBC W/DIF F monocytes 8.2 % 1.0-15 .0 Not Available [facility] (Lab) [address] [facility], [place], [address], 04/03/2025 04:30:43 03/27/20 25 03/27/2025 CBC W/DIF F eosinophils 5.0 % 0.0-8. 0 Not Available [facility] (Lab) [address] [facility], [place], [address], 04/03/2025 04:30:43 03/27/20 25 03/27/2025 CBC W/DIF F basophils 1.6 % 0.0-2. 0 Not Available [facility] (Lab) [address] [place], [address], 04/03/2025 04:30:43 03/27/20 25 03/27/2025 CBC W/DIF F immature granulocytes 0.2 % no define d refere nce range Immat ure Granu locyt es (IG) repre sents autom ated enume ratio n of Metam yeloc ytes, Myelo cytes and Promy elocy dawna when IG is < 5%. Blast s are not inclu ded in IG and repor reid separ ately if prese nt. Not Available [facility] (Lab) [address] [facility], [place], [address], 04/03/2025 04:30:43 03/27/20 25 03/27/2025 CBC W/DIF F absolute neutrophils 2.6 10'3/ uL 1.5-8. 0 Not Available [facility] (Lab) [address] [facility], [place], [address], 04/03/2025 04:30:43 03/27/20 25 03/27/2025 CBC W/DIF F absolute lymphocytes 1.1 10'3/ uL 1.0-4. 0 Not Available [facility] (Lab) [address] [facility], [place], [address], 04/03/2025 04:30:43 03/27/20 25 03/27/2025 CBC W/DIF F absolute monocytes 0.4 10'3/ uL 0.2-1. 0 Not Available [facility] (Lab) [address] [facility], [place], [address], 04/03/2025 04:30:43 03/27/20 25 03/27/2025 CBC W/DIF F absolute eosinophils 0.2 10'3/ uL 0.0-0. 6 Not Available [facility] (Lab) [address] [facility], [place], [address], 04/03/2025 04:30:43 03/27/20 25 03/27/2025 CBC W/DIF F absolute basophils 0.1 10'3/ uL 0.0-0. 3 Not Available [facility] (Lab) [address] [place], [address], 04/03/2025 04:30:43 03/27/20 25 03/27/2025 CBC W/DIF F absolute immature granulocytes 0.0 10'3/ uL 0.00-0 .10 Refer ence range s for nonbi nary/ inter sex or unspe cifie d gende r patie nts have not been estab lishe d. Pleas e refer to the follo wing table for range s estab lishe d for cisge nder patie nts and evalu ate in the clini shelia hakeem xt of the indiv idual patie nt: https ://lisa vicente book. nm.or g/gen derx Not Available [facility] (Lab) [address] [facility], [place], [address], 04/03/2025 04:30:43 03/27/20 25 03/27/2025 DHEA SULFA TE DHEA-sulfate 33 ug/dL Femal e Range s Age(y ) Range (ug/d L) 10-15 34-28 0 15-20 65-36 8 20-25 148-4 07 25-35 99-34 0 35-45 61-33 7 45-55 35-25 6 55-65 19-20 5 65-75 9-246 > 75 12-15 4 Not Available [facility] (Lab) [address] [facility], [place], [address], 04/03/2025 04:30:43 03/27/20 25 03/27/2025 LIPID PANEL ,AMA (LDL- CALC) total cholesterol 194 mg/dL 0-199 Not Available [facility] (Lab) [address] [place], [address], 04/03/2025 04:30:44 03/27/20 25 03/27/2025 LIPID PANEL ,AMA (LDL- CALC) triglyceride s 52 mg/dL 0-150 NCEP Refer ence Value s for Trigl yceri elliott: Renee l: <150 mg/dL Borde rline High: 150 - 199 mg/dL High: 200 - 499 mg/dL Very High: >/= 500 mg/dL Not Available [facility] (Lab) [address] [place], [address], 04/03/2025 04:30:44 03/27/20 25 03/27/2025 LIPID PANEL ,AMA (LDL- CALC) HDL cholesterol 101 mg/dL >40 Not Available [facility] (Lab) [address] [facility], [place], [address], 04/03/2025 04:30:44 03/27/2003/27/2025 LIPID PANEL ,AMA (LDL- CALC) LDL cholesterol 80 mg/dL 0-99 Cutof f value s recom yoselin d by the Natio nal Aneta stero l Educa tion Progr am: GARY ABLE: Aneta stero l <200 mg/dL LDL <100 mg/dL BORDE RLINE : Aneta stero l 200-2 39 mg/dL LDL 101-1 59 mg/dL HIGHE R RISK: Aneta stero l >240 mg/dL LDL >160 mg/dL , HDL <40 mg/dL Not Available [facility] (Lab) [address] [facility], [place], [address], 04/03/2025 04:30:44 03/27/2003/27/2025 LIPID PANEL ,AMA (LDL- CALC) non-HDL cholesterol 93 mg/dL no refere nce range A reaso nable goal for non-H DL aneta stero l is one that is 30 mg/dL highe r than the LDL aneta stero l goal. Not Available [facility] (Lab) [address] [facility], [place], [address], 04/03/2025 04:30:44 03/27/2003/27/2025 LIPID PANEL ,AMA (LDL- CALC) chol/HDL ratio 1.9 . 0.0-5. 0 On January 31, 2023, [facility] labor atori es pedro pablo ed the equat ion for calcu latin g estim ated low-d ensit y lipop rotei n-cho leste rol (LDL- C) from the Fried larisa equat ion to the Maricruz barber/Remy galan equat ion. This new equat ion is only valid for lipid panel s with trigl yceri elliott < 400 mg/dL . Alvini es kaleigh demon strat ed that this new equat ion will impro ve the accur acy of LDL-C , espec ially in scena godfrey when LDL-C elbert ntrat ions are relat ively low (< 100 mg/dL ), trigl yceri elliott are eleva reid, or patie nt is non-f astin g. Refer ences : - Maricruz barber, Carlos Verdugo, Vitor Whitman , Dee blanco, Orestes Naidu, Orestes carranza, Bradley Trivedi. Jennifer oh , and Vinh Peña . 2013. Comp ariso n of a Novel Metho d vs the Fried larisa Equat ion for Estim ating Low-D ensit y Lipop rotei n Aneta stero l Level s from the [facility] Lipid Profi le. ALEXANDRO: The Journ al of the Ameri can Medic al Assoc iatio n 310 19): 2060- . - Olu mckinnon V, Anna J, Maria Esther mckinnon A, Sary M, Flor koch R, Teodora mckinnon E, Jennifer oh RS, Casey SR, Maricruz barber SS. Fast ing Versu s Nonfa sting and Low-D ensit y Lipop rotei n Aneta stero l Accur acy. Circu latio n. 2017Oct 10;137 (1):1 0-19. Not Available [facility] (Lab) [address] [facility], [place], [address], 04/03/2025 04:30:44 03/27/20 25 03/27/2025 CMP(C OMPRE HENSI VE METAB OLIC PANEL ) sodium 139 mmol/ L 133-14 6 Not Available [facility] (Lab) [address] [place], [address], 04/03/2025 04:30:44 03/27/20 25 03/27/2025 CMP(C OMPRE HENSI VE METAB OLIC PANEL ) potassium 3.8 mmol/ L 3.5-5. 1 Not Available [facility] (Lab) [address] [place], [address], 04/03/2025 04:30:44 03/27/20 25 03/27/2025 CMP(C OMPRE HENSI VE METAB OLIC PANEL ) chloride 103 mmol/ L 98-107 Not Available [facility] (Lab) [address] [facility], [place], [address], 04/03/2025 04:30:44 03/27/20 25 03/27/2025 CMP(C OMPRE HENSI VE METAB OLIC PANEL ) carbon dioxide 25 mmol/ L 21-31 Not Available [facility] (Lab) [address] [facility], [place], [address], 04/03/2025 04:30:44 03/27/20 25 03/27/2025 CMP(C OMPRE HENSI VE METAB OLIC PANEL ) anion gap 11 mmol/ L 4-13 Not Available [facility] (Lab) [address] [facility], [place], [address], 04/03/2025 04:30:44 03/27/20 25 03/27/2025 CMP(C OMPRE HENSI VE METAB OLIC PANEL ) blood urea nitrogen 14 mg/dL 7-25 Not Available [facility] (Lab) [address] [facility], [place], [address], 04/03/2025 04:30:44 03/27/20 25 03/27/2025 CMP(C OMPRE HENSI VE METAB OLIC PANEL ) creatinine 0.85 mg/dL 0.60-1 .30 Not Available [facility] (Lab) [address] [facility], [place], [address], 04/03/2025 04:30:44 03/27/20 25 03/27/2025 CMP(C OMPRE HENSI VE METAB OLIC PANEL ) egfrcr (CKD-epi 2020) 74 mL/mi n/1.7 3_m2 >=60 Not Available [facility] (Lab) [address] [facility], [place], [address], 04/03/2025 04:30:44 03/27/20 25 03/27/2025 CMP(C OMPRE HENSI VE METAB OLIC PANEL ) calcium 9.6 mg/dL 8.3-10 .5 Not Available [facility] (Lab) [address] [facility], [place], [address], 04/03/2025 04:30:44 03/27/20 25 03/27/2025 CMP(C OMPRE HENSI VE METAB OLIC PANEL ) glucose 87 mg/dL 70-100 Not Available [facility] (Lab) [address] [facility], [place], [address], 04/03/2025 04:30:44 03/27/20 25 03/27/2025 CMP(C OMPRE HENSI VE METAB OLIC PANEL ) protein, total 7.0 g/dL 6.4-8. 3 Not Available [facility] (Lab) [address] [facility], [place], [address], 04/03/2025 04:30:44 03/27/20 25 03/27/2025 CMP(C OMPRE HENSI VE METAB OLIC PANEL ) albumin 4.6 g/dL 3.5-5. 0 Not Available [facility] (Lab) [address] [facility], [place], [address], 04/03/2025 04:30:44 03/27/20 25 03/27/2025 CMP(C OMPRE HENSI VE METAB OLIC PANEL ) ALT 13 units /L 9-43 Not Available [facility] (Lab) [address] [place], [address], 04/03/2025 04:30:44 03/27/20 25 03/27/2025 CMP(C OMPRE HENSI VE METAB OLIC PANEL ) alkaline phosphatase 86 units /L 34-104 Not Available [facility] (Lab) [address] [place], [address], 04/03/2025 04:30:44 03/27/20 25 03/27/2025 CMP(C OMPRE HENSI VE METAB OLIC PANEL ) AST 15 units /L 13-39 Not Available [facility] (Lab) [address] [place], [address], 04/03/2025 04:30:44 03/27/20 25 03/27/2025 CMP(C OMPRE HENSI VE METAB OLIC PANEL ) bilirubin, total 0.8 mg/dL 0.2-1. 2 Not Available [facility] (Lab) [address] [facility], [place], [address], 04/03/2025 04:30:44 03/27/20 25 03/27/2025 TSH, REFLE X FREE T4 TSH 2.11 uIU/m L 0.30-5 .33 Not Available [facility] (Lab) [address] [facility], [place], [address], 04/03/2025 04:30:44 03/27/20 25 03/27/2025 HUMAN SEX HORMO NE ANGELA NG GLOBU KAREN sex hormone binding globulin 45.9 nmole s/L 16.8-1 25.2 Not Available [facility] (Lab) [address] [facility], [place], [address], 04/03/2025 04:30:45 03/27/20 25 03/27/2025 VITAM IN D, 25-OH (TOTA L D2/D3 ) vitamin D, 25-hydroxy, total 54.8 NG/mL 30.0-1 00.0 Sugge stive of Defic iency : <20 ng/mL Sugge stive of Insuf ficie ncy: 20-29 ng/mL Sugge stive of Suffi cienc y: 30-10 0 ng/mL Sugge stive of Toxic ity: >150 ng/mL Not Available [facility] (Lab) [address] [facility], [place], [address], 04/03/2025 04:30:45 03/27/20 25 03/27/2025 ESTRA DIOL estradiol <5.0 pg/mL This assay was perfo rmed using [employer] ratio n reage nts and test kits. Value s obtai yefri with other assay metho ds or kits canno t be used inter chamorro eably . Femal e Estra diol Range s: Folli cular phase 12.4- 233 pg/mL Ovula tion phase 41.0- 398 pg/mL Lutea l phase 22.3- 341 pg/mL Postm enopa usal <5-13 8 pg/mL Healt hy Pregn ant Women 1st Trime ster 154-3 243 pg/mL 2nd Trime ster 1561- 43356 pg/mL 3rd Trime ster 8525- >3000 0 pg/mL Not Available [facility] (Lab) [address] [place], [address], 04/03/2025 04:30:45 03/27/20 25 03/27/2025 PROGE STERO NE progesterone 0.18 NG/mL This assay was perfo rmed using [employer] ratio n reage nts and test kits. Value s obtai yefri with other assay metho ds or kits canno t be used inter chamorro eay . Femal e Proge stero ne Range s: Folli cular phase 0.06- 0.89 ng/mL Ovula tion phase 0.12- 12.00 ng/mL Lutea l phase 1.83- 23.90 ng/mL Postm enopa usal <0.05 -0.13 ng/mL Healt hy Pregn ant Women 1st Trime ster 11.0- 44.30 2nd Trime ster 25.40 -83.3 0 3rd Trime ster 58.70 -214. 00 Not Available [facility] (Lab) [address] [place], [address], 04/03/2025 04:30:45 03/27/20 25 03/27/2025 PROLA CTIN prolactin, total 9.83 NG/mL 4.79-2 3.30 This assay was perfo rmed using [employer] ratio n reage nts and test kits. Value s obtai yefri with other assay metho ds or kits canno t be used inter chamorro eably . Not Available [facility] (Lab) [address] [place], [address], 04/03/2025 04:30:46 03/27/20 25 03/27/2025 FSH FSH 78.6 mIU/m L This assay was perfo rmed using [employer] n reage nts and test kits. Value s obtai yefri with other assay metho ds or kits canno t be used inter [facility] . Femal es Folli cular : 3.5-1 2.5 mIU/m L Ovula tion: 4.7-2 1.5 mIU/m L Lutea l: 1.7-7 .7 mIU/m L Postm enopa use: 25.8- 134.8 mIU/m L Not Available [facility] (Lab) [address] [facility], [place], [address], 04/03/2025 04:30:46 03/27/20 25 03/27/2025 LH (LUTE NIZIN G HORMO NE) LH 41.6 mIU/m L This assay was perfo rmed using [employer] reage nts and test kits. Value s obtai yefri with other assay metho ds or kits canno t be used inter [facility] . Femal es Mid-F ollic ular: 2.4-1 2.6 mIU/m L Mid-C ycle: 14.0- 95.6 mIU/m L Mid-L uteal : 1.0-1 1.4 mIU/m L Postm enopa use: 7.7-5 8.5 mIU/m L Not Available [facility] (Lab) [address] [facility], [place], [address], 04/03/2025 04:30:46 03/27/20 25 03/27/2025 HEMOG LOBIN A1C hemoglobin A1C 5.8 % 4.0-5. 6 high The Ameri can Diabe dawna Assoc iatio n recom mends that a prima ry goal of thera py gretchenul d be a HBA1C of < 7% and that physi cians shoul d reeva luate the treat ment regim en in patie nts with HBA1C value s consi stent ly > 8%. <5.7% Rneee l 5.7 - 6.4% Incre ased risk for diabe dawna >=6.5 % Diagn ostic of diabe dawna <7.0% Goal of thera py >8.0% Ian barnes Not Available [facility] (Lab) [address] [facility], [place], [address], 04/03/2025 04:30:47 03/27/20 25 03/27/2025 TESTO STERO NE, FREE( DIALY SIS) AND TOTAL (LC/M S/MS) testosterone , total 15 NG/dL 2-45 For addit ional infor erwin cheng e refer to http: //[facility] kemal barber.que stdia gnost ics.c om/fa q/ Total Testo stero neLCM SMSFA Q165 (This link is being provi ded for infor evelin pike/ educa fabian l purpo ses only. ) This test was devel oped and its lisbet tical perfo rmanc e mira cteri stics have been deter mined by [employer] [facility] [place], [place]. It has not been clear ed or appro aysha by the U.S. Food and Drug Admin istra tion. This assay has been valid ated pursu ant to the CLIA regul ation s and is used for clini shelia purpo ses. Not Available [facility] (Lab) [address] [facility], [place], [address], 04/03/2025 04:30:47 03/27/20 25 03/27/2025 TESTO STERO NE, FREE( DIALY SIS) AND TOTAL (LC/M S/MS) testosterone , free 1.3 pg/mL 0.2-3. 7 This test was devel oped and its lisbet tical perfo rmanc e mira cteri stics have been deter mined by [employer] [facility] [place] It has not been clear ed or appro aysha by the U.S. Food and Drug Admin istra tion. This assay has been valid ated pursu ant to the CLIA regul ation s and is used for clini shelia purpo ses. Perfo rming Organ izati on Infor matio n: Site ID: [id number] Name: [employer] [facility] Insti tute Addre ss: [id number] [place], [place] Direc tor: Jenni Jane MD PhD Not Available [facility] (Lab) [address] [facility], [place], [address], 04/03/2025 04:30:47 03/27/2003/27/2025 17-OH PROGE STERO NE 17-hydroxypr ogesterone, lc/MS/MS 12 NG/dL Adult Femal e Refer ence Range s for 17-Hy droxy proge stero ne: Pre-M enopa usal Mid Folli cular : 23-10 2 ng/dL Pre-M enopa usal Surge : 67-34 9 ng/dL Pre-M enopa usal Mid Lutea l: 139-4 31 ng/dL Postm enopa usal Phase : < or = 45 ng/dL Pregn nia: First Trime ster: 78-45 7 ng/dL Secon d Trime ster: 90-35 7 ng/dL Third Trime ster: 144-5 78 ng/dL This test was devel oped and its lisbet tical perfo rmanc e mira cteri stics have been deter mined by [employer]. It has not been clear ed or appro aysha by the FDA. This assay has been valid ated pursu ant to the CLIA regul ation s and is used for clini shelia purpo ses. Perfo rming Organ izati on Infor matio n: Site ID: [id number] Name: [employer]/[facility] [place] , Addre ss: [id number] [facility] [place] [id number] Direc tor: Claritza up MD,Ph D,YULIANA Not Available [facility] (Lab) [address] [place], [address], 04/03/2025 04:30:47 Result Notes None recorded. Procedures Surgical History Date Name Laterality Status Provider Name and Address Organization Details Recorded Time 07/09/20 23 Date of Last Mammogram completed [facility] 04/04/2024 11:59:06 10/17/19 20 completed Freya Skinner [facility] 03/07/2023 14:47:16 10/09/19 19 Date of Last Pap Smear completed [facility] 06/18/2024 09:15:08 10/09/19 19 Colonoscopy completed [facility] 06/18/2024 10:40:08 12/28/19 17 total replacement of hip completed [facility] 06/18/2024 10:40:26 10/09/19 10 procedure on joint completed [facility] 04/04/2024 12:01:46 Imaging Results None recorded. Procedure Notes None recorded. Medical Equipment None Reported. Allergies Allergen ID Allergen Name Allergen Category Reaction Reaction Severity Criticality Documentation Date Start Date Code Code System Note Provider Name and Address Organization Details Recorded Time lisinopri l medicatio n angioedem a mild Not available 03/07/20232019 46860 RxNorm Freyaluigi Skinner [facility] 14:46:59 Medications Name Sig Start Date Stop Date Status Note LastModified by Organization Details LastModified Time amoxicillin 500 mg capsule TAKE 1 CAPSULE BY MOUTH THREE TIMES A DAY UNTIL GONE 03/02 completed Not Available Not Available Not Available prednisone 10 mg tablet PLEASE SEE ATTACHED FOR DETAILED DIRECTION S 06/18 completed Not Available Not Available Not Available fluconazole 150 mg tablet 1 ORALLY THEN REPEAT AFTER 72 HOURS A SINGLE DOSE 12/27 completed Not Available Not Available Not Available phentermine 15 mg capsule TAKE 1 CAPSULE BY MOUTH EVERY DAY 04/04 completed Not Available Not Available Not Available phentermine 37.5 mg tablet TAKE 1 TABLET BY MOUTH EVERY DAY 09/01 completed Not Available Not Available Not Available triamcinolo ne acetonide 0.1 % topical cream APPLY TOPICALLY TWICE A DAY 06/18 completed Not Available Not Available Not Available hydrocortis one-acetic acid 1 %-2 % ear drops INSTILL 4 DROPS INTO EACH EAR THREE TIMES A DAY FOR 5 DAYS 04/04 completed Not Available Not Available Not Available pantoprazol e 40 mg tablet,aliyah yed release TAKE 1 TABLET BY MOUTH EVERY DAY IN THE MORNING active Not Available Not Available No t Available montelukast 10 mg tablet TAKE 1 TABLET BY MOUTH EVERY DAY active Not Available Not Available No t Available Baby Aspirin 81 mg chewable tablet Chew 1 tablet every day by oral route. active Not Available Not Available No t Available azelastine 137 mcg (0.1 %) nasal spray ADMINISTE R 1 SPRAY INTO EACH NOSTRIL EVERY 12 HOURS active Not Available Not Available No t Available losartan 50 mg-hydrochl orothiazide 12.5 mg tablet TAKE 1 TABLET BY MOUTH DAILY active Not Available Not Available No t Available fluticasone propionate 50 mcg/actuati on nasal spray,suspe nsion SPRAY 1 SPRAY INTO EACH NOSTRIL EVERY DAY 12/27 completed Not Available Not Available Not Available esomeprazol e magnesium 20 mg capsule,del ayed release TAKE 1 CAPSULE BY MOUTH TWICE A DAY 06/18 completed Not Available Not Available Not Available rosuvastati n 5 mg tablet TAKE 1 TABLET BY MOUTH EVERY EVENING WITH THE EVENING MEAL active Not Available Not Available No t Available topiramate 50 mg tablet TAKE 1 TABLET BY MOUTH TWICE A DAY 2022 active Not Available Not Available Not Avai lable eszopiclone 3 mg tablet TAKE 1 TABLET BY MOUTH EVERY DAY AT BEDTIME NEEDED FOR INSOMNIA active Not Available Not Available No t Available losartan 03/07 completed Not Available Not Available Not Available ProAir RespiClick 90 mcg/actuati on breath activated 1 PUFF INHALED EVERY 4 - 6 HOURS NEEDED FOR SHORTNESS OF BREATH OR WHEEZING active Not Available Not Available No t Available Ozempic 0.25 mg or 0.5 mg (2 mg/1.5 mL) subcutaneou s pen injector 04/04 completed Not Available Not Available Not Available BinaxNOW COVID-19 Ag Self Test kit USE DIRECTED 03/02 completed Not Available Not Available Not Available Ozempic 0.25 mg or 0.5 mg (2 mg/3 mL) subcutaneou s pen injector 04/04 completed Not Available Not Available Not Available Zepbound 2.5 mg/0.5 mL subcutaneou s pen injector INJECT 2.5 MG SUBCUTANE OUSLY WEEKLY *PA SUBMITTED !!!* 12/27 completed Not Available Not Available Not Available tirzepatide (weight loss) active Not Available Not Available Not Available Vitals Date Recorded Body height Body mass index (BMI) Body weight Systolic And Diastolic Provider Name and Address Organization Details Last Updated DateTime 12/27/2024 162.56 cm 31.8 kg/m2 78633.59 g 154/77 mm[Hg] [facility] 12/27/2024 11:22:42 Date Recorded Body height Body mass index (BMI) Body weight Systolic And Diastolic Provider Name and Address Organization Details Last Updated DateTime 04/04/2024 162.56 cm 31.9 kg/m2 06726.18 g 150/82 mm[Hg] [facility] 04/04/2024 11:55:24 Date Recorded Body height Body mass index (BMI) Body weight Systolic And Diastolic Provider Name and Address Organization Details Last Updated DateTime 06/18/2024 162.56 cm 32.3 kg/m2 73172.37 g 137/81 mm[Hg] Irish Monroy [facility] 06/18/2024 10:36:38 Date Recorded Body height Body mass index (BMI) Body weight Systolic And Diastolic Provider Name and Address Organization Details Last Updated DateTime 09/01/2025 162.56 cm 30 kg/m2 64504.66 g 151/81 mm[Hg] [facility] 09/01/2025 10:54:41 Date Recorded Body height Body mass index (BMI) Body weight Systolic And Diastolic Provider Name and Address Organization Details Last Updated DateTime 09/09/2024 162.56 cm 32.4 kg/m2 11009.96 g 151/80 mm[Hg] [facility] 09/09/2024 10:52:32 Social History Question Answer Notes LastModified by Organizat ion Details LastModified Time Tobacco Smoking Status Former Smoker Freya Skinner [facility] 03/07/2023 14:52:16 Are You Blind Or Do You Have Difficulty Seeing? No [email or web address] Information n ot available 06/18/2024 In The 14 Days Before Symptom Onset, Have You Had Close Contact With A Laboratory-confirm ed COVID-19 While That Case Was Ill? No Information n ot available 04/04/2024 In The 14 Days Before Symptom Onset, Have You Had Close Contact With A Person Who Is Under Investigation For COVID-19 While That Person Was Ill? No Information not available 04/04/2024 Have You Been To An Area Known To Be High Risk For COVID-19? No Information not available 04/04/2024 Are You Deaf Or Do You Have Serious Difficulty Hearing? No [email or web address] Information not available 06/18/2024 When Did You Quit Smoking? 16+yearssi ncelastcig arette 38 Years Ago [email or web address] Information not available 03/07/2023 How Much Tobacco Do You Smoke? No [email or web address] Information not available 06/18/2024 Have You Used IV Drugs? No [email or web address] Information not available 06/18/2024 Do You Have Difficulty Walking Or Climbing Stairs? No Information not available 06/18/2024 Sex: Unknown Functional Status Question Answer Note LastModified by Organizat ion Details LastModified Time Do you use any illicit or recreational drugs? No [email or web address] Information not available 06/18/2024 Are you able to walk independently without assistance or assistive devices? [email or web address] Information not available 06/18/2024 Are you able to care for yourself independently? Yes [email or web address] Information not available 06/18/2024 Do you have difficulty dressing, bathing, grooming, or toileting? No [email or web address] Information not available 06/18/2024 Mental Status None recorded. Family History Relationship Description Onset Age of this Age Resolved Age Notes LastModified by Organization Details LastModified Time Father Heart disease [email or web address] Not available 2022 10:39:40 Medical History Condition Response Allergies (Food, seasonal, environmental ) Y Other N Drug/Latex Allergies/Reactions N Breast Cancer N Blood Transfusion N Lung Disease N Dermatologic Disorders N Defects or Inherited Disease N Breast Problem N Gestational Diabetes N Hematologic disorders N Anesthesia Complications N History of STI N Deep Vein Thrombosis N Polycystic ovary syndrome N Anxiety Disorder N Autoimmune disease N Arthritis Y Polyps N Infertility N History of abnormal pap N Acid Reflux (GERD) Y Cancer N Varicosities N Stroke N Neurologic/Epilepsy N Endometriosis N High Cholesterol Y Headaches N Fibromyalgia N Kidney Disease N Heart Problems N Thyroid Problems N Kidney or Bladder Problems N GI Problems Y Eating Disorder N Anemia N Art (IVF or FET) N Psychiatric Illness N Ovarian Cancer N Diabetes N Pulmonary (TB, Asthma) N Hepatitis/Liver Disease N No Past Medical History N Eczema N Urinary Tract Infection N Abuse/Domestic Violence N Asthma N Trauma/Violence N Depression/ depression N Heart Disease N Pre-Eclampsia N Hypertension Y Osteoporosis N Thrombophilias N Gynecological History Statement/Question Response Abnormal Pap N Date of Last Mammogram 07/09/2023 Date of LMP 10/18/2009 N STIs/STDs N HPV Vaccine N 55 Current Control Method Menopause Age at First Child 31 If Post Menopausal, Age at Menopause 55 Date of Last Colonoscopy Sexually Active? Y Menses Monthly N Date of DEXA bone scan 10/28/2022 Age of first menstrual cycle 12 Date of Last Pap Smear 10/09/2018 Sexual Problems? N 10/17/2019 Obstetrics History GPAL:G 2 P 2 0 0 2 Type Value Full Term 2 Living 2 Total 2 Immunizations Vaccine Type Date Status Note Provider Noel koch and Address Organization Details Recorded Time Influenza, adjuvanted, quadrivalent, PF 07/05/2023 completed Freya Skinner [facility] 08/25/2023 10:44:13 Past Encounters Encounter ID Performer Location Encounter Start Date Encounter Closed Date Diagnosis/Indication Diagnosis SNOMED-CT Code Diagnosis ICD10 Code Diagnosis IMO Codes Diagnosis Note [id number] Manjeet Johnson MD [facility] [address] [address] 03/07/2023 13:55:46 03/08/2023 15:37:03 Obesity 159039525 E66.9 This patient is a 67-year-ol d female who presents for weight management . We took a very thorough history. We talked about some of her goals. Talked about some of her challenges . We talked about some of her previous efforts in weight loss and her activity level. We talked about limitation s for activity. Talked about energy consumptio n energy expenditur e. She was given recommenda tions and some of these areas. We talked about the importance of resistance training and cardiovasc ular exercise. We talked about her medical history in its relationsh ip to excess body weight. We talked about treatment options. We talked about the evaluation that is appropriat e for beginning weight management . We talked about her diet and our dietitian. We agreed to a dietitian consult. We agreed to a sleep study. We agreed to metabolic testing. We performed body compositio n testing today. We reviewed those results and talked about their significan ce. We spent over 1 hour together. More than 50% was counseling . We agreed to come together in 2 weeks and initiate treatment. discussed medication s in detail. Spent an hour together. More than 50% was counseling . We agreed to start medication s. We are going to start phentermin e and topiramate . She is going to use her weight watchers training to quantify calories. [id number] Manjeet Johnson MD [facility] [address],[facility] [place] [address] 04/06/2023 12:01:07 04/06/2023 13:13:51 Obesity 452946025 E66.9 67-year-ol d female presents for follow-up on weight management . She has no complaint, s she lost 13 lb in 4 weeks. We are obviously pleased with the outcome of the 1st month. She is tolerating medication well. She did not tolerate topiramate however. She discontinu e that permanentl y. She it is very active. She is exercising multiple times a week. She is limiting her calories to 16-1800 calories a day. She appears to be doing everything right. We spent more than 20 minutes face-to-fa ce. More than 50% was counseling . [id number] Manjeet Johnson MD [facility] [address] [address] 05/04/2023 10:16:51 05/04/2023 11:51:57 Obesity 052559691 E66.9 67-year-ol d female presents for follow-up on weight management . She has no complaint, s she lost 6 Lbs. in the last four weeks. She is limiting her calories to 16-1800 calories a day. She appears to be doing everything right. She is active. We will continue on her current dose of phentermin e. We spent more than 20 minutes face-to-fa ce. More than 50% was counseling . [id number] Manjeet Johnson MD [facility] [address],[place] [address] 06/23/2023 10:54:07 06/23/2023 11:53:05 Obesity 690414245 E66.9 67-year-ol d female presents for follow-up on weight management . She has no complaint, s she lost 6 Lbs. in the last several weeks. She is limiting her calories to 2264-5794 calories a day. She appears to be doing everything right. She is active. We will continue on her current dose of phentermin e. We spent more than 20 minutes face-to-fa ce. More than 50% was counseling . [id number] Manjeet Johnson MD [facility] [address],[place] [address] 08/25/2023 10:13:45 08/25/2023 11:38:06 Obesity 280913028 E66.9 68-year-ol d female with obesity who presents for weight management . We have been working on weight loss with phentermin e. We agreed to go to a higher dose, 37.5 mg. She is going to use tablets and break them in half and use the higher dose at times. She will mostly be using 18.7 5 mg. She is exercising in the swimming pool. She is watching her diet. She is recently in [place] and had trouble with her diet there. She is also returning to [place] in November. We spent 20 minutes face-to-fa ce. More than 50 50% was counseling [id number] Manjeet Johnson MD [facility] [address],[place] [address] 11/09/2023 10:01:31 11/09/2023 11:15:15 Obesity 217363564 E66.9 68-year-ol d female with obesity who presents for weight management . We have been working on weight loss with phentermin e. We agreed to go to a higher dose, 37.5 mg. She is going to use tablets and break them in half and use the higher dose at times. She will mostly be using 18.7 5 mg. She is exercising in the swimming pool. She is watching her diet. She is recently in [place] and had trouble with her diet there. She is also returning to [place] in November. We spent 20 minutes face-to-fa ce. More than 50 50% was counseling [id number] Manjeet Johnson MD [facility] [address],[place] [address] 01/26/2024 14:26:29 01/26/2024 16:01:29 Obesity 064404246 E66.9 this patient is a 59-year-ol d female who presents for follow-up on weight management . She has continued to lose modest to minimal amount of weight. Overall she is down quite a bit. She wants to continue to move downward. We talked about options. We talked about other medication s. We talked about the GLP 1 agonist. Her insurance does cover Ozempic. Can we get it covered for obesity is the question. We sent the medication in. We will see if she can get the medication covered. She does not we talked about the higher dose GLP 1 agonist. Breaking that into smaller aliquots. We spent over 20 minutes face-to-fa ce. More than 50% was counseling . If she has not covered for the medication we will consider either the newer GLP 1 agonist and smaller aliquots. Or a returned to the phentermin e. [id number] Manjeet Johnson MD [facility] [address],[place] [address] 04/04/2024 11:14:16 04/04/2024 12:34:31 Obesity 220045790 E66.9 this patient is a 59-year-ol d female who presents for follow-up on weight management . She has continued to lose modest to minimal amount of weight. Overall she is down quite a bit. She wants to continue to move downward. We talked about options. We talked about other medication s. We talked about the GLP 1 agonist. Her insurance does cover Ozempic. Can we get it covered for obesity is the question. We sent the medication in. We will see if she can get the medication covered. She does not we talked about the higher dose GLP 1 agonist. Breaking that into smaller aliquots. If she has not covered for the medication we will consider either the newer GLP 1 agonist and smaller aliquots. Or a returned to the phentermin e. total time spent on this patient's care was more than 20 minutes. [id number] Manjeet Johnson MD [facility] [address] [address] 06/18/2024 09:46:27 06/18/2024 11:29:46 Obesity 803709112 E66.9 this patient is a 59-year-ol d female who presents for follow-up on weight management . She has continued to lose modest to minimal amount of weight. Overall she is down quite a bit. She wants to continue to move downward. We talked about options. We talked about other medication s. We talked about the GLP 1 agonist. Was unable to get GLP 1 is covered previously . She has osteoarthr itis and hip replacemen t along with hypertensi on. We will see if she can get the medication covered. She does not we talked about the higher dose GLP 1 agonist. Breaking that into smaller aliquots. If she has not covered for the medication we will consider either the newer GLP 1 agonist and smaller aliquots. Or a returned to the phentermin e. total time spent on this patient's care was more than 20 minutes. Hypertensive disorder 38 [id number] I10 Osteoarthritis [id number] M19.90 [id number] Manjeet Johnson MD [facility] [address],[facility] [place] [address] 09/09/2024 10:15:28 09/09/2024 11:17:24 Obesity 313568822 E66.9 this patient is a 69-year-ol d female who presents for follow-up on weight management . She has continued to lose modest to minimal amount of weight. Overall she is down quite a bit. She wants to continue to move downward. We talked about options. We talked about other medication s. We talked about the GLP 1 agonist. Was unable to get GLP 1 is covered previously . She has osteoarthr itis and hip replacemen t along with hypertensi on. We will see if she can get the medication covered. She does not we talked about the higher dose GLP 1 agonist. Breaking that into smaller aliquots. If she has not covered for the medication we will consider either the newer GLP 1 agonist and smaller aliquots. Or a returned to the phentermin e. total time spent on this patient's care was more than 20 minutes. [id number] Manjeet Johnson MD [facility] [address],[facility] [place] [address] 12/27/2024 10:33:43 12/27/2024 11:53:19 Obesity 144159783 E66.9 this patient is a 69-year-ol d female who presents for follow-up on weight management . She has continued to lose modest to minimal amount of weight. Overall she is down quite a bit. She wants to continue to move downward. We talked about options. We talked about other medication s. We talked about the GLP 1 agonist. Was unable to get GLP 1 is covered previously . She has osteoarthr itis and hip replacemen t along with hypertensi on. We will see if she can get the medication covered. She does not we talked about the higher dose GLP 1 agonist. Breaking that into smaller aliquots. If she has not covered for the medication we will consider either the newer GLP 1 agonist and smaller aliquots. Or a returned to the phentermin e. total time spent on this patient's care was more than 20 minutes. [id number] Manjeet Johnson MD [facility] [address] [address] 09/01/2025 09:59:47 09/01/2025 14:27:20 Obesity caused by energy imbalance [id number] E66.811 E66.09 Z68.32 [id number] this patient is a 69-year-ol d female who presents for follow-up on weight management . She has continued to lose modest to minimal amount of weight. Overall she is down quite a bit. She wants to continue to move downward. We talked about options. We talked about other medication s. We talked about the GLP 1 agonist. patient has been on GLP 1 agonist for several months. She is doing well. She is losing weight. She is exercising . She is managing her calories. She is very systematic and has a lot of motivation . It is moving through this well. Spent over 20 minutes on the patient's care in total. Including documentat ion. Reviewing results Health Concerns Section Related Observation LastModified by Organization Detai ls LastModified Time None Recorded Concern Status LastModified by Organization Details LastModified Time None Recorded Advance Directives Directive None Recorded Payers Insurance Date Sequence Insurance Name Policy Number Policy Crocker Covered Member ID Crocker Member ID Guarantor Name 09/01/2025 1 [facility] (MEDICARE REPLACEMENT/A DVANTAGE - PPO) [id number] Kandis Martin [id number] Kandis Martin Notes Date Note Type Note Provider Name and Address Organization Details Recorded Time 04/04/2024 text/html this patient is a 59-year-old female who presents for follow-up on weight management. She has continued to lose modest to minimal amount of weight. Overall she is down quite a bit. She wants to continue to move downward. We talked about options. We talked about other medications. We talked about the GLP 1 agonist. Her insurance does cover Ozempic. Can we get it covered for obesity is the question. We sent the medication in. We will see if she can get the medication covered. She does not we talked about the higher dose GLP 1 agonist. Breaking that into smaller aliquots. We spent over 20 minutes [id number]. More than 50% was counseling. If she has not covered for the medication we will consider either the newer GLP 1 agonist and smaller aliquots. Or a returned to the phentermine. Manjeet Johnson MD [address], [place], [address], [facility] 04/04/2024 12:32:05 06/18/2024 text/html this patient is a 59-year-old female who presents for follow-up on weight management. She has continued to lose modest to minimal amount of weight. Overall she is down quite a bit. She wants to continue to move downward. We talked about options. We talked about other medications. We talked about the GLP 1 agonist. Was unable to get GLP 1 is covered previously. She has osteoarthritis and hip replacement along with hypertension. We will see if she can get the medication covered. She does not we talked about the higher dose GLP 1 agonist. Breaking that into smaller aliquots. If she has not covered for the medication we will consider either the newer GLP 1 agonist and smaller aliquots. Or a returned to the phentermine. total time spent on this patient's care was more than 20 minutes. Manjeet Johnson MD [address], [place], [address], [facility] 06/18/2024 11:15:37 09/09/2024 text/html this patient is a 69-year-old female who presents for follow-up on weight management. She has continued to lose modest to minimal amount of weight. Overall she is down quite a bit. She wants to continue to move downward. We talked about options. We talked about other medications. We talked about the GLP 1 agonist. Was unable to get GLP 1 is covered previously. She has osteoarthritis and hip replacement along with hypertension. We will see if she can get the medication covered. She does not we talked about the higher dose GLP 1 agonist. Breaking that into smaller aliquots. If she has not covered for the medication we will consider either the newer GLP 1 agonist and smaller aliquots. Or a returned to the phentermine. total time spent on this patient's care was more than 20 minutes. Manjeet Johnson MD [address], [place], [address], [facility] 09/09/2024 11:14:04 12/27/2024 text/html this patient is a 69-year-old female who presents for follow-up on weight management. She has continued to lose modest to minimal amount of weight. Overall she is down quite a bit. She wants to continue to move downward. We talked about options. We talked about other medications. We talked about the GLP 1 agonist. Was unable to get GLP 1 is covered previously. She has osteoarthritis and hip replacement along with hypertension. We will see if she can get the medication covered. She does not we talked about the higher dose GLP 1 agonist. Breaking that into smaller aliquots. If she has not covered for the medication we will consider either the newer GLP 1 agonist and smaller aliquots. Or a returned to the phentermine. total time spent on this patient's care was more than 20 minutes. Manjeet Johnson MD [address], [place], [address], [facility] 12/27/2024 11:53:15 09/01/2025 text/html this patient is a 69-year-old female who presents for follow-up on weight management. She has continued to lose modest to minimal amount of weight. Overall she is down quite a bit. She wants to continue to move downward. We talked about options. We talked about other medications. We talked about the GLP 1 agonist. patient has been on GLP 1 agonist for several months. She is doing well. She is losing weight. She is exercising. She is managing her calories. She is very systematic and has a lot of motivation. It is moving through this well. Spent over 20 minutes on the patient's care in total. Including documentation. Reviewing results Manjeet Johnson MD [address], [place], [address], [facility] 09/01/2025 14:26:39 OBGyn Episode Ob Episode Information Episode Created Date Number of Fetuses Patient Bloodtype Patient rh Status Prepregnancy Weight lbs Domestic Partner Domestic Partner Phone Father Name Finish Grinder Status 04/04/20 24 1 CLOSED Fetus Data First Name Last Name Admitted to NICU Weight (g) Sex Living Outcome Pediatric Complications Fetus ID Race Codes Race Delivery Type 4025.62 9 M Full Term [id number] Vaginal Delivery Pipo Calculation Initial Pipo Date Initial Exam Date Initial Exam Provider Initial Ultrasound Date Last Menstrual Period Date Ultra Sound Weeks Gestation 0 Eighteen To Twenty Week Pipo Update Ultra Sound Date Fundal Height At Umbil Quickening Date Ultra Sound Latest Weeks Gestation Final Pipo Confirmed By Final Pipo Confirmed Date Final Pipo Date Ultra Sound Latest Days Gestation 0 0 Menstrual History Last Menstrual Date Menses Monthly On Bcp Conception Prior Menses Frequency Hcg Plus Date Menarche Onset Age Delivery Information Delivery Date Delivery Type Labor Anesthesia Weeks Gestation Incision Type Labor Labor Length Hrs Delivered By Post Complications Tubal Sterilization Discharge Date Comments 5 Discharge Information Feeding Method Contraceptive Method Maternal HG B and HCT Levels Ob Episode Information Episode Created Date Number of Fetuses Patient Bloodtype Patient rh Status Prepregnancy Weight lbs Domestic Partner Domestic Partner Phone Father Name Finish Grinder Status 04/04/20 24 1 CLOSED Fetus Data First Name Last Name Admitted to NICU Weight (g) Sex Living Outcome Pediatric Complications Fetus ID Race Codes Race Delivery Type 3912.23 1 M Full Term [id number] Vaginal Delivery Pipo Calculation Initial Pipo Date Initial Exam Date Initial Exam Provider Initial Ultrasound Date Last Menstrual Period Date Ultra Sound Weeks Gestation 0 Eighteen To Twenty Week Pipo Update Ultra Sound Date Fundal Height At Umbil Quickening Date Ultra Sound Latest Weeks Gestation Final Pipo Confirmed By Final Pipo Confirmed Date Final Pipo Date Ultra Sound Latest Days Gestation 0 0 Menstrual History Last Menstrual Date Menses Monthly On Bcp Conception Prior Menses Frequency Hcg Plus Date Menarche Onset Age Delivery Information Delivery Date Delivery Type Labor Anesthesia Weeks Gestation Incision Type Labor Labor Length Hrs Delivered By Post Complications Tubal Sterilization Discharge Date Comments 9 Discharge Information Feeding Method Contraceptive Method Maternal HG B and HCT Levels
--- OUTSIDE RECORDS SUMMARY | 2025-09-10 17:00 | XMS_ITS | Patient Health Record ---
Author Organization [facility] Address [address] [place], [place] [address] Care Team Providers Care Welder Gas Name Role Phone RONNI HERMAN Unavailable [phone] Reason For Referral No Information Medications Medication SIG (Take, Route, Frequency, Duration) Notes Start Date End Date Status Lisinopril 10 MG Oral Tablet ORAL lisinopril 10 MG Oral TabletOriginal Medicationlisinopril 10 MG Oral Tablet *Reorder from [employer] for eRx and Interaction Alerts* 01/24/2014 Active Social History Social History Additional Details Category Social Info Options Details Migrated Social History Migrated Social History Smoking Status : Former smoker , History of tobacco use : Plan Of Treatment No Information Insurance Providers Payer Name Payer Address Payer Phone Subscriber Number Group Number Insured Name Patient Relationship to Insured Coverage Start Date Coverage End Date [facility] [place]) ATTN CLAIMS [address] [place] [address] [id number] TAMIKO MARTINI Self - patient is the insured
--- OUTSIDE RECORDS SUMMARY | 2025-09-10 17:00 | XMS_ITS | Continuity of Care Document ---
Author Organization [facility] [place] Address [address] [place] [address] Care Team Providers Care Telephony Engineer Name Role Phone DAVID MCFADDEN Primary Care Provider Assessment No assessment recorded. Plan of Treatment Reminders Order Date Submit Date Provider Last Modified By Organization Details Last Modified Time Details Appointments None record ed. Lab None record ed. Referral None record ed. Procedures None record ed. Surgeries None record ed. Imaging None record ed. Medication Orders None record ed. Patient TargetsNo targets recorded. Patient InstructionsNo instructions recorded. Reason for Referral None Reported. Procedures Surgical History Date Name Laterality Status Provider Name and Address Organization Details Recorded Time 07/09/20 23 Date of Last Mammogram completed Emily Mckeon [facility] 04/04/2024 11:59:06 10/17/19 20 completed Freya Skinner [facility] 03/07/2023 14:47:16 10/09/19 19 Date of Last Pap Smear completed Irish Monroy [facility] 06/18/2024 09:15:08 10/09/19 19 Colonoscopy completed Irishchandu Monroy [facility] 06/18/2024 10:40:08 12/28/19 17 total replacement of hip completed Irishchandu Monroy [facility] 06/18/2024 10:40:26 10/09/19 10 procedure on joint completed Emily Mckeon [facility] 04/04/2024 12:01:46 Imaging Results None recorded. Procedure Notes None recorded. Medical Equipment None Reported. Allergies Allergen ID Allergen Name Allergen Category Reaction Reaction Severity Criticality Documentation Date Start Date Code Code System Note Provider Name and Address Organization Details Recorded Time lisinopri l medicatio n angioedem a mild Not available 03/07/20232019 69641 RxNorm Freya Skinner [facility] 3 14:46:59 Medications Name Sig Start Date Stop [...] Updated DateTime 09/01/2025 162.56 cm 30 kg/m2 69058.66 g 151/81 mm[Hg] Emily Mckeon [facility] 09/01/2025 10:54:41 Social History Question Answer Notes LastModified by Organizat ion Details LastModified Time Tobacco Smoking Status Former Smoker Freya seth, [facility] 03/07/2023 14:52:16 Are You Blind Or Do You Have Difficulty Seeing? No [email or web address] Information n ot available 06/18/2024 In The [...] Do You Have Serious Difficulty Hearing? No [email or web address] Information not available 06/18/2024 When Did You Quit Smoking? 16+yearssi ncelastcig arette 38 Years Ago [email or web address] Information not available 03/07/2023 How Much Tobacco Do You Smoke? No [email or web address] Information not available 06/18/2024 Have You Used IV Drugs? No [email or web address] Information not available 06/18/2024 Do You Have Difficulty Walking Or Climbing Stairs? No [email or web address] Information not available 06/18/2024 Sex: Unknown Functional Status Question Answer Note LastModified by Organizat ion Details LastModified Time Do you use any illicit or recreational drugs? No Information not available 06/18/2024 Are you able to walk independently without assistance or assistive devices? YESWOREST [email or web address] Information not available 06/18/2024 Are you able to care for yourself independently? Yes [email or web address] Information not available 06/18/2024 Do you have difficulty dressing, bathing, grooming, or toileting? No [email or web address] Information not available 06/18/2024 Mental Status None recorded. Family History Relationship Description Onset Age of this Age Resolved Age Notes LastModified by Organization Details LastModified Time Father Heart disease [email or web address] Not available 2022 10:39:40 Medical History Condition Response Other N Blood Transfusion N Dermatologic Disorders N Gestational Diabetes N Anxiety Disorder N Autoimmune disease N Arthritis Y Polyps N Infertility N Acid Reflux (GERD) Y Cancer N Varicosities N Stroke N Neurologic/Epilepsy N Fibromyalgia N Headaches N Kidney Disease N Heart Problems N Kidney or Bladder Problems N Eating Disorder N Art (IVF or FET) N Hepatitis/Liver Disease N No Past Medical History N Urinary Tract Infection N Asthma N Trauma/Violence N Thrombophilias N Allergies (Food, seasonal, environmental ) Y Breast Cancer N Drug/Latex Allergies/Reactions N Lung Disease N Defects or Inherited Disease N Breast Problem N Hematologic disorders N Anesthesia Complications N History of STI N Deep Vein Thrombosis N Polycystic ovary syndrome N History of abnormal pap N Endometriosis N High Cholesterol Y Thyroid Problems N GI Problems Y Anemia N Psychiatric Illness N Ovarian Cancer N Diabetes N Pulmonary (TB, Asthma) N Eczema N Abuse/Domestic Violence N Depression/ depression N Heart Disease N Pre-Eclampsia N Hypertension Y Osteoporosis N Gynecological History Statement/Question Response Abnormal Pap [...] Immunizations Vaccine Type Date Status Note Provider Nam e and Address Organization Details Recorded Time Influenza, adjuvanted, quadrivalent, PF 07/05/2023 completed Freya Skinner [facility] 08/25/2023 10:44:13 Past Encounters Encounter ID Performer Location Encounter Start Date Encounter Closed Date Diagnosis/Indication Diagnosis SNOMED-CT Code Diagnosis ICD10 Code Diagnosis IMO Codes Diagnosis Note [id number] Manjeet Johnson MD [place] [address] [address] 09/01/2025 09:59:47 09/01/2025 14:27:20 Obesity caused by energy imbalance 080366584 E66.811 E66.09 Z68.32 [id number] this patient is a 69-year-ol d female [...] by Organization Details LastModified Time None Recorded Payers Encounter Date Sequence Insurance Name Policy Number Policy Crocker Covered Member ID Crocker Member ID Guarantor Name 09/01/2025 1 [facility] (MEDICARE REPLACEMENT/A DVANTAGE - PPO) [id number] Kandis Martin [id number] Kandis Martin Notes Date Note Type Note Provider Name and Address Organization Details Recorded Time 09/01/2025 text/html this patient is a 69-year-old [...] documentation. Reviewing results Manjeet Johnson MD [address], [place], [address], [place] [facility] 09/01/2025 14:26:39 OBGyn Episode No OBEpisode recorded.
== END 2025-09-10 15:53 | disposition home or self-care (01) ==
PROVIDERS: PCP Family Medicine
DX: R22.41 Localized swelling, mass and lump, right lower limb (principal)
CPT/HCPCS: 73701

== ENCOUNTER 2025-10-01 06:55 | Outpatient (CLI) | payer MEDICARE, SELFPAY ==
--- NOTE | ~2025-10-01 | MR_ITS ---
EXAMINATION: MR femur RT wo/w con DATE: 10/01/2025 07:48 INDICATION: Localized swelling, mass or lump at the right thigh TECHNIQUE: Magnetic resonance imaging (MRI) of the right thigh was performed without intravenous contrast. A marker was placed over the mass. Sequences included axial, sagittal and coronal T1-weighted FSE and fluid sensitive FSE STIR, T1-weighted FS FSE and post contrast axial T1-weighted FSE and axial and coronal T1-weighted FS FSE. COMPARISON: None. FINDINGS: Metallic magnetic field artifact surrounding a right total hip arthroplasty. This obscures some of the immediately adjacent bone and soft tissues. There is thin peripheral synovial enhancement associated with a complex T2 hyperintense cystic fluid collection which extends 17 cm craniocaudally between the proximal rectus femoris and sartorius muscles and 5.8 x 4.4 cm in transaxial dimensions. There is a second complex fluid collection with similar imaging features which measures 6.6 x 3.4 x 5.0 cm extending into the from the region of the right hip in the right obturator externus muscle belly. There is no surrounding soft tissue edema or enhancement to elevate concern for abscess. Decompressed bladder is unremarkable. The uterus is not identified and has likely been surgically resected. No pathologically enlarged right pelvic or inguinal lymphadenopathy. IMPRESSION: 1. 2 large complex loculated fluid collections extending inferiorly from the region of the right hip were there is a total hip arthroplasty. The larger extending between the rectus femoris and sartorius muscles measures 17 x 5.8 x 4.4 cm and the smaller extending inferomedially along the quadratus femoris muscle measures 6.6 x 3.4 x 5.0 cm. The absence of surrounding inflammatory stranding would argue against abscess. Differential would include hematoma in the appropriate clinical setting or a large synovial cyst arising from the joint space potentially related to particle disease. Reviewed, dictated and finalized at location [facility] [employer] IMPRESSION: 1. 2 large complex loculated fluid collections extending inferiorly from the re gion of the right hip were there is a total hip arthroplasty. The larger extend ing between the rectus femoris and sartorius muscles measures 17 x 5.8 x 4.4 cm and the smaller extending inferomedially along the quadratus femoris muscle me asures 6.6 x 3.4 x 5.0 cm. The absence of surrounding inflammatory stranding wo uld argue against abscess. Differential would include hematoma in the appropria te clinical setting or a large synovial cyst arising from the joint space poten tially related to particle disease.
--- OUTSIDE RECORDS SUMMARY | 2025-10-01 07:00 | XMS_ITS | Clinical Summary ---
Author Organization [facility] Address [address] [place] [address] Care Team Providers Care Solid Waste Facility Operator Name Role Phone Christelle Chambers MD Primary Care Provider [phone] Allergies Active Allergy Reactions Criticality Noted Date [...] (07/10/2023): Added automatically from request for surgery [id number] Screening for malignant neoplasm of colon 2019 Overview (03/20/2020): Added automatically from request for surgery [id number] Acid reflux 03/20/2020 Overview (03/20/2020): Added automatically from request for surgery [id number] Ankle mass, right 01/02/2019 Aftercare following right hip joint replacement surgery 01/02/2019 Osteoarthritis of right hip 01/01/2018 Right hip pain 12/05/2016 Encounters Date Type Department Care Team Description 09/08/2025 Telephone [facility] [address] [facility] [address] [place] [id number] Orestes Mena MD Surgery Questions; Question 07/21/2025 11:53 AM CDT - 07/21/2025 11:59 PM CDT Hospital Encounter [facility] [place] [address] Christelle Chambers MD Discharge Disposition: Home or [...] Comments Blood Pressure 155/70 10/04/2023 8:45 AM TECHNICAL SERVICES LIBRARIAN Pulse 75 10/04/2023 8:25 AM TECHNICAL SERVICES LIBRARIAN Temperature 35.8 C (96.5 F) 10/04/2023 7:10 AM TECHNICAL SERVICES LIBRARIAN Respiratory Rate 18 10/04/2023 8:25 AM TECHNICAL SERVICES LIBRARIAN Oxygen Saturation 98% 10/04/2023 8:45 AM TECHNICAL SERVICES LIBRARIAN Inhaled Oxygen Concentration - - Weight 83.9 kg (185 lb) 09/25/2023 10:08 AM TECHNICAL SERVICES LIBRARIAN Height 167.6 cm (5' 6) 09/25/2023 10:08 AM TECHNICAL SERVICES LIBRARIAN Body Mass Index 29.86 09/25/2023 10:08 AM TECHNICAL SERVICES LIBRARIAN Plan of Treatment Upcoming Encounters Date Type Department Care Team (Late st Contact Info) Description 04/01/2026 11:20 AM CDT Office Visit [facility] [address] [address] Antonina Erickson, NADIYA [address] [address] Health Maintenance Due Date Last Done Comments EGD-Maxwell's Surveillance 1955 Hepatitis C 1972 DTaP, Tdap and Td Vaccines (1 - Tdap) 1973 Pneumococcal Vaccine: 50+ Years (1 of 1 - PCV) 2004 Zoster Vaccines (1 of 2) 2004 Annual Medicare Wellness Visit 2019 Dexa Scan (General) 2019 PHQ-2 (Physician [place]) 10/09/2024 COVID-19 Vaccine (1 - season) 2025 [...] this topic Medical Devices Implanted Type Area Sales Secretary Device Identifier Shelf Expiration Date Model / [...] 12:18 PM Narrative 07/21/2025 12:19 PM CDT [facility] [address] [place] [address] Examination: Screening bilateral mammogram Exam Date/Time: 07/21/2025 [...] Final Result from Last 3 Months Insurance [facility] MEDICARE Care Teams Solid Waste Facility Operator Relationship Specialty Start Date End Date Christelle Chambers MD [address] [facility] [address] [facility] [address] [place] [address] PCP - General 02/27/17
--- OUTSIDE RECORDS SUMMARY | 2025-10-01 07:00 | XMS_ITS | Patient Health Record ---
Author Organization [facility] Address [address] [place], [place] [address] Care Team Providers Care Pocketbook Maker Name Role Phone RONNI HERMAN Unavailable [phone] Reason For Referral No Information Medications Medication SIG (Take, Route, Frequency, Duration) Notes Start Date End Date Status Lisinopril 10 MG Oral Tablet ORAL lisinopril 10 MG Oral TabletOriginal Medicationlisinopril 10 MG Oral Tablet *Reorder from [employer] for eRx and Interaction Alerts* 01/24/2014 Active [...] Insured Coverage Start Date Coverage End Date [facility] ([facility]) ATTN CLAIMS [address] [place] [address] [id number] TAMIKO MARTINI Self - patient is the insured
--- OUTSIDE RECORDS SUMMARY | 2025-10-01 07:00 | XMS_ITS | Clinical Summary ---
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
--- OUTSIDE RECORDS SUMMARY | 2025-10-01 07:00 | XMS_ITS | Data Portability ---
Author Organization [facility] Address [address] [place] [address] Care Team Providers Care Manager Of School Name Role Phone DAVID MCFADDEN Primary Care Provider Assessment No assessment recorded. Plan of Treatment Reminders Order Date Submit Date Provider Last Modified By Organization Details Last Modified Time Details Appointments None recorded. Lab None recorded. Referral None recorded. Procedures None recorded. Surgeries None recorded. Imaging None recorded. Medication Orders phentermine 37.5 mg tablet 2024 025 [facility] [id number], [address], 5 10:55:09 Zepbound 2.5 mg/0.5 mL subcutaneou s pen injector 2023 025 [facility] [id number], [address], 5 11:23:07 phentermine 37.5 mg tablet 2023 024 [facility] [id number], [address], 5 10:55:09 Zepbound 2.5 mg/0.5 mL subcutaneou s pen injector 2023 024 [facility] [id number], [address], 5 11:23:05 phentermine 37.5 mg tablet 2023 024 [id number] In [facility], [address], [place], [address], 5 10:55:09 Patient TargetsNo targets recorded. Patient InstructionsNo instructions recorded. Reason for Referral None Reported. Results Created Date Observation Date Name Description Value Unit Range Abnormal Flag Note LastModifiedBy Organization Detail LastModifiedTime 03/27/20 25 03/27/2025 CBC W/DIF F WBC 4.4 10'3/ uL 3.5-10 .5 Not Available [facility] (Lab) [address], [place], [address], 04/03/2025 04:30:43 03/27/20 25 03/27/2025 CBC W/DIF F RBC 4.36 10'6/ uL (based on docume nted legal sex) 3.80-5 .20 Not Available [facility] (Lab) [address], [place], [address], 04/03/2025 04:30:43 03/27/20 25 03/27/2025 CBC W/DIF F HGB 12.9 g/dL (based on docume nted legal sex) 11.6-1 5.4 Not Available [facility] (Lab) [address], [place], [address], 04/03/2025 04:30:43 03/27/20 25 03/27/2025 CBC W/DIF F HCT 40.2 % (based on docume nted legal sex) 34.0-4 5.0 Not Available [facility] (Lab) [address], [place], [address], 04/03/2025 04:30:43 03/27/20 25 03/27/2025 CBC W/DIF F MCV 92.2 fL 80.0-9 9.0 Not Available [facility] (Lab) [address] [facility], [place], [address], 04/03/2025 04:30:43 03/27/20 25 03/27/2025 CBC W/DIF F MCH 29.6 pg 27.0-3 4.0 Not Available [facility] (Lab) [address] [facility] [address], [place], [address], 04/03/2025 04:30:43 03/27/20 25 03/27/2025 CBC W/DIF F MCHC 32.1 g/dL 32.0-3 5.5 Not Available [facility] (Lab) [address], [place], [address], 04/03/2025 04:30:43 03/27/20 25 03/27/2025 CBC W/DIF F RDW 12.8 % 11.0-1 5.0 Not Available [facility] (Lab) [address], [place], [address], 04/03/2025 04:30:43 03/27/20 25 03/27/2025 CBC W/DIF F plt 296 10'3/ uL 150-40 0 Not Available [facility] (Lab) [address], [place], [address], 04/03/2025 04:30:43 03/27/20 25 03/27/2025 CBC W/DIF F MPV 9.2 fL 8.8-12 .1 Not Available [facility] (Lab) [address], [place], [address], 04/03/2025 04:30:43 03/27/20 25 03/27/2025 CBC W/DIF F NRBC's 0.0 % 0.0 Not Available [facility] (Lab) [address], [place], [address], 04/03/2025 04:30:43 03/27/20 25 03/27/2025 CBC W/DIF F absolute NRBCs 0.0 10'3/ uL no refere nce range establ ished Not Available [facility] (Lab) [address], [place], [address], 04/03/2025 04:30:43 03/27/20 25 03/27/2025 CBC W/DIF F neutrophils 60.5 % 34.0-7 3.0 Not Available [facility] (Lab) [address], [place], [address], 04/03/2025 04:30:43 03/27/20 25 03/27/2025 CBC W/DIF F lymphocytes 24.5 % 15.0-5 0.0 Not Available [facility] (Lab) [address], [place], [address], 04/03/2025 04:30:43 03/27/20 25 03/27/2025 CBC W/DIF F monocytes 8.2 % 1.0-15 .0 Not Available [facility] (Lab) [address], [place], [address], 04/03/2025 04:30:43 03/27/20 25 03/27/2025 CBC W/DIF F eosinophils 5.0 % 0.0-8. 0 Not Available [facility] (Lab) [address], [place], [address], 04/03/2025 04:30:43 03/27/20 25 03/27/2025 CBC W/DIF F basophils 1.6 % 0.0-2. 0 Not Available [facility] (Lab) [address] [place], [address], 04/03/2025 04:30:43 03/27/20 25 03/27/2025 CBC W/DIF [...] separ ately if prese nt. Not Available [facility] (Lab) [address], [place], [address], 04/03/2025 04:30:43 03/27/20 25 03/27/2025 CBC W/DIF F absolute neutrophils 2.6 10'3/ uL 1.5-8. 0 Not Available [facility] (Lab) [address], [place], [address], 04/03/2025 04:30:43 03/27/20 25 03/27/2025 CBC W/DIF F absolute lymphocytes 1.1 10'3/ uL 1.0-4. 0 Not Available [facility] (Lab) [address], [place], [address], 04/03/2025 04:30:43 03/27/20 25 03/27/2025 CBC W/DIF F absolute monocytes 0.4 10'3/ uL 0.2-1. 0 Not Available [facility] (Lab) [address], [place], [address], 04/03/2025 04:30:43 03/27/20 25 03/27/2025 CBC W/DIF F absolute eosinophils 0.2 10'3/ uL 0.0-0. 6 Not Available [facility] (Lab) [address], [place], [address], 04/03/2025 04:30:43 03/27/20 25 03/27/2025 CBC W/DIF F absolute basophils 0.1 10'3/ uL 0.0-0. 3 Not Available [facility] (Lab) [address] [place], [address], 04/03/2025 04:30:43 03/27/20 25 03/27/2025 CBC W/DIF [...] vicente book. nm.or g/gen derx Not Available [facility] (Lab) [address] [facility], [place], [address], 04/03/2025 04:30:43 03/27/20 25 03/27/2025 DHEA SULFA TE DHEA-sulfate 33 ug/dL Femal e Range s Age(y ) Range (ug/d L) 10-15 34-28 0 15-20 65-36 8 20-25 148-4 07 25-35 99-34 0 35-45 61-33 7 45-55 35-25 6 55-65 19-20 5 65-75 9-246 > 75 12-15 4 Not Available [facility] (Lab) [address], [place], [address], 04/03/2025 04:30:43 03/27/20 25 03/27/2025 LIPID PANEL ,AMA (LDL- CALC) total cholesterol 194 mg/dL 0-[address] [facility] (Lab) [address] [place], [address], 04/03/2025 04:30:44 03/27/20 25 03/27/2025 LIPID PANEL ,AMA (LDL- CALC) triglyceride s 52 mg/dL 0-150 NCEP Refer ence Value s for Trigl yceri elliott: Renee l: <150 mg/dL Borde rline High: 150 - 199 mg/dL High: 200 - 499 mg/dL Very High: >/= 500 mg/dL Not Available [facility] (Lab) [address] [place], [address], 04/03/2025 04:30:44 03/27/20 25 03/27/2025 LIPID PANEL ,AMA (LDL- CALC) HDL cholesterol 101 mg/dL >[address] [facility] (Lab) [address], [place], [address], 04/03/2025 04:30:44 03/27/2003/27/2025 LIPID PANEL ,AMA (LDL- [...] mg/dL , HDL <40 mg/dL Not Available [facility] (Lab) [address], [place], [address], 04/03/2025 04:30:44 03/27/2003/27/2025 LIPID PANEL ,AMA (LDL- CALC) non-HDL cholesterol 93 mg/dL no refere nce range A reaso nable goal for non-H DL aneta stero l is one that is 30 mg/dL highe r than the LDL aneta stero l goal. Not Available [facility] (Lab) [address], [place], [address], 04/03/2025 04:30:44 03/27/2003/27/2025 LIPID PANEL ,AMA (LDL- CALC) chol/HDL ratio 1.9 . 0.0-5. 0 On January 31, 2023, [facility] labor atori es pedro pablo ed the [...] Aneta stero l Level s from the [facility] Lipid Profi le. ALEXANDRO: The Journ al [...] n. 2017Oct 10;137 (1):1 0-19. Not Available [facility] (Lab) [address], [place], [address], 04/03/2025 04:30:44 03/27/20 25 03/27/2025 CMP(C OMPRE HENSI VE METAB OLIC PANEL ) sodium 139 mmol/ L 133-14 6 Not Available [facility] (Lab) [address] [place], [address], 04/03/2025 04:30:44 03/27/20 25 03/27/2025 CMP(C OMPRE HENSI VE METAB OLIC PANEL ) potassium 3.8 mmol/ L 3.5-5. 1 Not Available [facility] (Lab) [address] [place], [address], 04/03/2025 04:30:44 03/27/20 25 03/27/2025 CMP(C OMPRE HENSI VE METAB OLIC PANEL ) chloride 103 mmol/ L 98-107 Not Available [facility] (Lab) [address], [place], [address], 04/03/2025 04:30:44 03/27/20 25 03/27/2025 CMP(C OMPRE HENSI VE METAB OLIC PANEL ) carbon dioxide 25 mmol/ L 21-31 Not Available [facility] (Lab) [address], [place], [address], 04/03/2025 04:30:44 03/27/20 25 03/27/2025 CMP(C OMPRE HENSI VE METAB OLIC PANEL ) anion gap 11 mmol/ L 4-13 Not Available [facility] (Lab) [address], [place], [address], 04/03/2025 04:30:44 03/27/20 25 03/27/2025 CMP(C OMPRE HENSI VE METAB OLIC PANEL ) blood urea nitrogen 14 mg/dL 7-[address] [facility] (Lab) [address], [place], [address], 04/03/2025 04:30:44 03/27/20 25 03/27/2025 CMP(C OMPRE HENSI VE METAB OLIC PANEL ) creatinine 0.85 mg/dL 0.60-1 .30 Not Available [facility] (Lab) [address], [place], [address], 04/03/2025 04:30:44 03/27/20 25 03/27/2025 CMP(C OMPRE HENSI VE METAB OLIC PANEL ) egfrcr (CKD-epi 2020) 74 mL/mi n/1.7 3_m2 >=60 Not Available [facility] (Lab) [address], [place], [address], 04/03/2025 04:30:44 03/27/20 25 03/27/2025 CMP(C OMPRE HENSI VE METAB OLIC PANEL ) calcium 9.6 mg/dL 8.3-10 .5 Not Available [facility] (Lab) [address], [place], [address], 04/03/2025 04:30:44 03/27/20 25 03/27/2025 CMP(C OMPRE HENSI VE METAB OLIC PANEL ) glucose 87 mg/dL 70-100 Not Available [facility] (Lab) [address], [place], [address], 04/03/2025 04:30:44 03/27/20 25 03/27/2025 CMP(C OMPRE HENSI VE METAB OLIC PANEL ) protein, total 7.0 g/dL 6.4-8. 3 Not Available [facility] (Lab) [address], [place], [address], 04/03/2025 04:30:44 03/27/20 25 03/27/2025 CMP(C OMPRE HENSI VE METAB OLIC PANEL ) albumin 4.6 g/dL 3.5-5. 0 Not Available [facility] (Lab) [address], [place], [address], 04/03/2025 04:30:44 03/27/20 25 03/27/2025 CMP(C OMPRE HENSI VE METAB OLIC PANEL ) ALT 13 units /L 9-43 Not Available [facility] (Lab) [address] [place], [address], 04/03/2025 04:30:44 03/27/20 25 03/27/2025 CMP(C OMPRE HENSI VE METAB OLIC PANEL ) alkaline phosphatase 86 units /L 34-104 Not Available [facility] (Lab) [address] [place], [address], 04/03/2025 04:30:44 03/27/20 25 03/27/2025 CMP(C OMPRE HENSI VE METAB OLIC PANEL ) AST 15 units /L 13-39 Not Available [facility] (Lab) [address] [place], [address], 04/03/2025 04:30:44 03/27/20 25 03/27/2025 CMP(C OMPRE HENSI VE METAB OLIC PANEL ) bilirubin, total 0.8 mg/dL 0.2-1. 2 Not Available [facility] (Lab) [address], [place], [address], 04/03/2025 04:30:44 03/27/20 25 03/27/2025 TSH, REFLE X FREE T4 TSH 2.11 uIU/m L 0.30-5 .33 Not Available [facility] (Lab) [address], [place], [address], 04/03/2025 04:30:44 03/27/20 25 03/27/2025 HUMAN SEX HORMO NE ANGELA NG GLOBU KAREN sex hormone binding globulin 45.9 nmole s/L 16.8-1 25.2 Not Available [facility] (Lab) [address], [place], [address], 04/03/2025 04:30:45 03/27/20 25 03/27/2025 VITAM IN D, 25-OH (TOTA L D2/D3 ) vitamin D, 25-hydroxy, total 54.8 NG/mL 30.0-1 00.0 Sugge stive of Defic iency : <20 ng/mL Sugge stive of Insuf ficie ncy: 20-29 ng/mL Sugge stive of Suffi cienc y: 30-10 0 ng/mL Sugge stive of Toxic ity: >150 ng/mL Not Available [facility] (Lab) [address], [place], [address], 04/03/2025 04:30:45 03/27/20 25 03/27/2025 ESTRA DIOL [...] 154-3 243 pg/mL 2nd Trime ster 1561- 76546 pg/mL 3rd Trime ster 8525- >3000 0 pg/mL Not Available [facility] (Lab) [address] [place], [address], 04/03/2025 04:30:45 03/27/20 25 03/27/2025 PROGE STERO [...] Trime ster 58.70 -214. 00 Not Available [facility] (Lab) [address] [place], [address], 04/03/2025 04:30:45 03/27/20 25 03/27/2025 PROLA CTIN prolactin, total 9.83 NG/mL 4.79-2 3.30 This assay was perfo rmed using [employer] ratio n reage nts and test kits. Value s obtai yefri with other assay metho ds or kits canno t be used inter chamorro eably . Not Available [facility] (Lab) [address] [place], [address], 04/03/2025 04:30:46 03/27/20 25 03/27/2025 FSH FSH 78.6 mIU/m L This assay was perfo rmed using [employer] n reage nts and test kits. Value s obtai yefri with other assay metho ds or kits canno t be used inter [facility] . Femal es Folli cular : 3.5-1 2.5 mIU/m L Ovula tion: 4.7-2 1.5 mIU/m L Lutea l: 1.7-7 .7 mIU/m L Postm enopa use: 25.8- 134.8 mIU/m L Not Available [facility] (Lab) [address], [place], [address], 04/03/2025 04:30:46 03/27/20 25 03/27/2025 LH (LUTE NIZIN G HORMO NE) LH 41.6 mIU/m L This assay was perfo rmed using [employer] n reage nts and test kits. Value s obtai yefri with other assay metho ds or kits canno t be used inter [facility] . Femal es Mid-F ollic ular: 2.4-1 2.6 mIU/m L Mid-C ycle: 14.0- 95.6 mIU/m L Mid-L uteal : 1.0-1 1.4 mIU/m L Postm enopa use: 7.7-5 8.5 mIU/m L Not Available [facility] (Lab) [address], [place], [address], 04/03/2025 04:30:46 03/27/20 25 03/27/2025 HEMOG LOBIN [...] s consi stent ly > 8%. <5.7% Renee l 5.7 - 6.4% Incre ased risk for diabe dawna >=6.5 % Diagn ostic of diabe dawna <7.0% Goal of thera py >8.0% Ian barnes Not Available [facility] (Lab) [address], [place], [address], 04/03/2025 04:30:47 03/27/20 25 03/27/2025 TESTO STERO NE, FREE( DIALY SIS) AND TOTAL (LC/M S/MS) testosterone , total 15 NG/dL 2-45 For addit ional infor erwin cheng e refer to http: //[facility] stdia gnost ics.c om/fa q/ Total Testo stero neLCM SMSFA Q165 (This link is being provi ded for infor evelin pike/ educa fabian l purpo ses only. ) This test was devel oped and its lisbet tical perfo rmanc e mira cteri stics have been deter mined by [email or web address] [facility] [place], [place]. It has not been clear ed or appro aysha by the U.S. Food and Drug Admin istra tion. This assay has been valid ated pursu ant to the CLIA regul ation s and is used for clini shelia purpo ses. Not Available [facility] (Lab) [address], [place], [address], 04/03/2025 04:30:47 03/27/20 25 03/27/2025 TESTO STERO NE, FREE( DIALY SIS) AND TOTAL (LC/M S/MS) testosterone , free 1.3 pg/mL 0.2-3. 7 This test was devel oped and its lisbet tical perfo rmanc e mira cteri stics have been deter mined by [email or web address] [place] [employer] [place]. It has not been clear ed or appro aysha by the U.S. Food and Drug Admin istra tion. This assay has been valid ated pursu ant to the CLIA regul ation s and is used for clini shelia purpo ses. Perfo rming Organ izati on Infor matio n: Site ID: [email or web address] Name: [email or web address] Heri pace [facility] tute Addre ss: [id number], [place] Direc tor: Jenni Jane MD PhD Not Available [facility] (Lab) [address], [place], [address], 04/03/2025 04:30:47 03/27/2003/27/2025 17-OH PROGE STERO NE [...] cteri stics have been deter mined by [email or web address]. It has not been clear ed or appro aysha by the FDA. This assay has been valid ated pursu ant to the CLIA regul ation s and is used for clini shelia purpo ses. Perfo rming Organ izati on Infor matio n: Site ID: [email or web address] Name: [email or web address]/[facility] charline [place]sec[place] , Addre ss: [id number] [facility] [place] [address] Direc tor: Claritza up MD,Ph D,YULIANA Not Available [facility] (Lab) [address] [place], [address], 04/03/2025 04:30:47 Result Notes None recorded. Procedures Surgical History Date Name Laterality Status Provider Name and Address Organization Details Recorded Time 07/09/20 23 Date of Last Mammogram completed [facility] 04/04/2024 11:59:06 10/17/19 20 completed Freya Skinner [facility] 03/07/2023 14:47:16 10/09/19 19 Date of Last Pap Smear completed [facility] 06/18/2024 09:15:08 10/09/19 19 Colonoscopy completed [facility] 06/18/2024 10:40:08 12/28/19 17 total replacement of hip completed [facility] 06/18/2024 10:40:26 10/09/19 10 procedure on joint completed [facility] 04/04/2024 12:01:46 Imaging Results None recorded. Procedure Notes None recorded. Medical Equipment None Reported. Allergies Allergen ID Allergen Name Allergen Category Reaction Reaction Severity Criticality Documentation Date Start Date Code Code System Note Provider Name and Address Organization Details Recorded Time lisinopri l medicatio n angioedem a mild Not available 03/07/20232019 [address] [facility] 14:46:59 Medications Name Sig Start Date [...] Updated DateTime 12/27/2024 162.56 cm 31.8 kg/m2 26794.59 g 154/77 mm[Hg] [facility] 12/27/2024 11:22:42 Date Recorded Body height Body mass index (BMI) Body weight Systolic And Diastolic Provider Name and Address Organization Details Last Updated DateTime 04/04/2024 162.56 cm 31.9 kg/m2 33058.18 g 150/82 mm[Hg] [facility] 04/04/2024 11:55:24 Date Recorded Body height Body mass index (BMI) Body weight Systolic And Diastolic Provider Name and Address Organization Details Last Updated DateTime 06/18/2024 162.56 cm 32.3 kg/m2 12231.37 g 137/81 mm[Hg] Irish Monroy [facility] 06/18/2024 10:36:38 Date Recorded Body height Body mass index (BMI) Body weight Systolic And Diastolic Provider Name and Address Organization Details Last Updated DateTime 09/01/2025 162.56 cm 30 kg/m2 75440.66 g 151/81 mm[Hg] [facility] 09/01/2025 10:54:41 Date Recorded Body height Body mass index (BMI) Body weight Systolic And Diastolic Provider Name and Address Organization Details Last Updated DateTime 09/09/2024 162.56 cm 32.4 kg/m2 41941.96 g 151/80 mm[Hg] [facility] 09/09/2024 10:52:32 Social History Question Answer Notes LastModified by Organizat ion Details LastModified Time Tobacco Smoking Status Former Smoker Freya Skinner [facility] 03/07/2023 14:52:16 Are You Blind Or Do You Have Difficulty Seeing? No [email or web address] Information n ot available 06/18/2024 In The [...] Do You Have Serious Difficulty Hearing? No [email or web address] Information not available 06/18/2024 When Did You Quit Smoking? 16+yearssi ncelastcig arette 38 Years Ago [email or web address] Information not available 03/07/2023 How Much Tobacco Do You Smoke? No [email or web address] Information not available 06/18/2024 Have You Used IV Drugs? No [email or web address] Information not available 06/18/2024 Do You Have Difficulty Walking Or Climbing Stairs? No [email or web address] Information not available 06/18/2024 Sex: Unknown Functional Status Question Answer Note LastModified by Organizat ion Details LastModified Time Do you use any illicit or recreational drugs? No [email or web address] Information not available 06/18/2024 Are you able to walk independently without assistance or assistive devices? YESWOREST [email or web address] Information not available 06/18/2024 Are you able to care for yourself independently? Yes [email or web address] Information not available 06/18/2024 Do you have difficulty dressing, bathing, grooming, or toileting? No [email or web address] Information not available 06/18/2024 Mental Status None recorded. Family History Relationship Description Onset Age of this Age Resolved Age Notes LastModified by Organization Details LastModified Time Father Heart disease [email or web address] Not available 2022 10:39:40 Medical History Condition Response Allergies (Food, seasonal, environmental ) Y Other N Breast Cancer N Drug/Latex Allergies/Reactions N Blood Transfusion N Dermatologic Disorders N Lung Disease N Defects or Inherited Disease N Breast Problem N Gestational Diabetes N Hematologic disorders N Anesthesia Complications N History of STI N Deep Vein Thrombosis N Polycystic ovary syndrome N Anxiety Disorder N Autoimmune disease N Arthritis Y Infertility N Polyps N Acid Reflux (GERD) Y History of abnormal pap N Cancer N Stroke N Varicosities N Neurologic/Epilepsy N Endometriosis N High Cholesterol Y Headaches N Fibromyalgia N Kidney Disease N Heart Problems N Kidney or Bladder Problems N Thyroid Problems N GI Problems Y Eating Disorder [...] Vaccine Type Date Status Note Provider Nam zee and Address Organization Details Recorded Time Influenza, adjuvanted, quadrivalent, PF 07/05/2023 completed Freya Skinner [facility] 08/25/2023 10:44:13 Past Encounters Encounter ID Performer Location Encounter Start Date Encounter Closed Date Diagnosis/Indication Diagnosis SNOMED-CT Code Diagnosis ICD10 Code Diagnosis IMO Codes Diagnosis Note [id number] Manjeet Johnson MD Roberta [address] [address] 03/07/2023 13:55:46 03/08/2023 15:37:03 Obesity 969224484 E66.9 This patient is a 67-year-ol d [...] her weight watchers training to quantify calories. [id number] Manjeet Johnson MD Roberta [address],[facility] [place] [address] 04/06/2023 12:01:07 04/06/2023 13:13:51 Obesity 367265007 E66.9 67-year-ol d female presents for follow-up [...] ce. More than 50% was counseling . [id number] Manjeet Johnson MD Roberta [address] [address] 05/04/2023 10:16:51 05/04/2023 11:51:57 Obesity 505060601 E66.9 67-year-ol d female presents for follow-up [...] ce. More than 50% was counseling . [id number] Manjeet Johnson MD Roberta [address],[place] [address] 06/23/2023 10:54:07 06/23/2023 11:53:05 Obesity 832638982 E66.9 67-year-ol d female presents for follow-up on weight management . She has no complaint, s she lost 6 Lbs. in the last several weeks. She is limiting her calories to 1925-1341 calories a day. She appears to be doing everything right. She is active. We will continue on her current dose of phentermin e. We spent more than 20 minutes face-to-fa ce. More than 50% was counseling . [id number] Manjeet Johnson MD Roberta [address],[place] [address] 08/25/2023 10:13:45 08/25/2023 11:38:06 Obesity [id number] E66.9 68-year-ol d female with obesity who [...] watching her diet. She is recently in [place] and had trouble with her diet there. She is also returning to [place] in November. We spent 20 minutes face-to-fa ce. More than 50 50% was counseling [id number] Manjeet Johnson MD Roberta [address],[place] [address] 11/09/2023 10:01:31 11/09/2023 11:15:15 Obesity 232996043 E66.9 68-year-ol d female with obesity who [...] watching her diet. She is recently in [place] and had trouble with her diet there. She is also returning to [place] in November. We spent 20 minutes face-to-fa ce. More than 50 50% was counseling [id number] Manjeet Johnson MD Roberta [address],[place] [address] 01/26/2024 14:26:29 01/26/2024 16:01:29 Obesity 407063634 E66.9 this patient is a 59-year-ol d [...] Or a returned to the phentermin e. [id number] Manjeet Johnson MD Roberta [address],[place] [address] 04/04/2024 11:14:16 04/04/2024 12:34:31 Obesity [id number] E66.9 this patient is a 59-year-ol d [...] patient's care was more than 20 minutes. [id number] Manjeet Johnson MD Roberta [address] [address] 06/18/2024 09:46:27 06/18/2024 11:29:46 Obesity [id number] E66.9 this patient is a 59-year-ol d [...] more than 20 minutes. Hypertensive disorder 38 499104 I10 Osteoarthritis [id number] M19.90 [id number] Manjeet Johnson MD Roberta [address],[facility] [place] [address] 09/09/2024 10:15:28 09/09/2024 11:17:24 Obesity [id number] E66.9 this patient is a 69-year-ol d [...] patient's care was more than 20 minutes. [id number] Manjeet Johnson MD Roberta [address],[facility] [place] [address] 12/27/2024 10:33:43 12/27/2024 11:53:19 Obesity [id number] E66.9 this patient is a 69-year-ol d [...] patient's care was more than 20 minutes. [id number] Manjeet Johnson MD Roberta [address] [address] 09/01/2025 09:59:47 09/01/2025 14:27:20 Obesity caused by energy imbalance [id number] E66.811 E66.09 Z68.32 [id number] this patient is a 69-year-ol d female [...] Crocker Member ID Guarantor Name 09/01/2025 1 [facility] (MEDICARE REPLACEMENT/A DVANTAGE - PPO) [id number] Kandis Martin [id number] Kandis Martin Notes Date Note Type Note [...] smaller aliquots. We spent over 20 minutes [id number]. More than 50% was counseling. If she has not covered for the medication we will consider either the newer GLP 1 agonist and smaller aliquots. Or a returned to the phentermine. Manjeet Johnson MD [address], [place], [address], [facility] 04/04/2024 12:32:05 06/18/2024 text/html this patient [...] minutes. Manjeet Johnson MD [address], [place], [address], [facility] 06/18/2024 11:15:37 09/09/2024 text/html this patient [...] minutes. Manjeet Johnson MD [address], [place], [address], [facility] 09/09/2024 11:14:04 12/27/2024 text/html this patient [...] minutes. Manjeet Johnson MD [address], [place], [address], [facility] 12/27/2024 11:53:15 09/01/2025 text/html this patient [...] results Manjeet Johnson MD [address], [place], [address], [facility] 09/01/2025 14:26:39 OBGyn Episode Ob Episode Information Episode Created Date Number of Fetuses Patient Bloodtype Patient rh Status Prepregnancy Weight lbs Domestic Partner Domestic Partner Phone Father Name Drum Sander Status 04/04/20 24 1 CLOSED Fetus Data First Name Last Name Admitted to NICU Weight (g) Sex Living Outcome Pediatric Complications Fetus ID Race Codes Race Delivery Type 4025.62 9 M Full Term [id number] Vaginal Delivery Pipo Calculation Initial Pipo Date [...] Domestic Partner Domestic Partner Phone Father Name Drum Sander Status 04/04/20 24 1 CLOSED Fetus Data First Name Last Name Admitted to NICU Weight (g) Sex Living Outcome Pediatric Complications Fetus ID Race Codes Race Delivery Type 3912.23 1 M Full Term [id number] Vaginal Delivery Pipo Calculation Initial Pipo Date [...]
--- OUTSIDE RECORDS SUMMARY | 2025-10-01 07:00 | XMS_ITS | Continuity of Care Document ---
Author Organization [facility] [place] Address [address] [place] [address] Care Team Providers Care Tire Recapping Machine Operator Name Role Phone DAVID MCFADDEN Primary Care [...] Date of Last Mammogram completed Emily Mckeon [facility] 04/04/2024 11:59:06 10/17/19 20 completed Freya Skinner [facility] 03/07/2023 14:47:16 10/09/19 19 Date of Last Pap Smear completed Irish Monroy [facility] 06/18/2024 09:15:08 10/09/19 19 Colonoscopy completed Irishchandu Monroy [facility] 06/18/2024 10:40:08 12/28/19 17 total replacement of hip completed Irishchandu Monroy [facility] 06/18/2024 10:40:26 10/09/19 10 procedure on joint completed Emily Mckeon [facility] 04/04/2024 12:01:46 Imaging Results None recorded. Procedure Notes None recorded. Medical Equipment None Reported. Allergies Allergen ID Allergen Name Allergen Category Reaction Reaction Severity Criticality Documentation Date Start Date Code Code System Note Provider Name and Address Organization Details Recorded Time lisinopri l medicatio n angioedem a mild Not available 03/07/20232019 93164 RxNorm Freya Skinner [facility] 3 14:46:59 Medications Name Sig [...] Updated DateTime 09/01/2025 162.56 cm 30 kg/m2 49332.66 g 151/81 mm[Hg] Emily Mckeon [facility] 09/01/2025 10:54:41 Social History Question Answer Notes LastModified by Organizat ion Details LastModified Time Tobacco Smoking Status Former Smoker Freya seth, [facility] 03/07/2023 14:52:16 Are You Blind Or Do You Have Difficulty Seeing? No [email or web address] Information n ot available 06/18/2024 In The [...] Do You Have Serious Difficulty Hearing? No [email or web address] Information not available 06/18/2024 When Did You Quit Smoking? 16+yearssi ncelastcig arette 38 Years Ago [email or web address] Information not available 03/07/2023 How Much Tobacco Do You Smoke? No Information not available 06/18/2024 Have You Used IV Drugs? No [email or web address] Information not available 06/18/2024 Do You Have Difficulty Walking Or Climbing Stairs? No [email or web address] Information not available 06/18/2024 Sex: Unknown Functional Status Question Answer Note LastModified by Organizat ion Details LastModified Time Do you use any illicit or recreational drugs? No [email or web address] Information not available 06/18/2024 Are you able to walk independently without assistance or assistive devices? YESWOREST [email or web address] Information not available 06/18/2024 Are you able to care for yourself independently? Yes [email or web address] Information not available 06/18/2024 Do you have difficulty dressing, bathing, grooming, or toileting? No [email or web address] Information not available 06/18/2024 Mental Status None recorded. Family History Relationship Description Onset Age of this Age Resolved Age Notes LastModified by Organization Details LastModified Time Father Heart disease [email or web address] Not available 2022 10:39:40 Medical History Condition Response Allergies (Food, seasonal, environmental ) Y Other N Drug/Latex Allergies/Reactions N Breast Cancer N Blood Transfusion N Dermatologic Disorders N Lung Disease N Defects or Inherited Disease N Breast Problem N Gestational Diabetes N Hematologic disorders N Anesthesia Complications N History of STI N Deep Vein Thrombosis N Polycystic ovary syndrome N Anxiety Disorder N Autoimmune disease N Arthritis Y Polyps N Infertility N Acid Reflux (GERD) Y History of abnormal pap N Cancer N Varicosities N Stroke N Neurologic/Epilepsy N Endometriosis N High Cholesterol Y Fibromyalgia N Headaches N Kidney Disease N [...] adjuvanted, quadrivalent, PF 07/05/2023 completed Freya Skinner [facility] 08/25/2023 10:44:13 Past Encounters Encounter ID Performer Location Encounter Start Date Encounter Closed Date Diagnosis/Indication Diagnosis SNOMED-CT Code Diagnosis ICD10 Code Diagnosis IMO Codes Diagnosis Note [id number] Manjeet Johnson MD [place] [address] [address] 09/01/2025 09:59:47 09/01/2025 14:27:20 Obesity caused by energy imbalance [id number] E66.811 E66.09 Z68.32 [id number] this patient is a 69-year-ol d female [...] Crocker Member ID Guarantor Name 09/01/[address] [facility] (MEDICARE REPLACEMENT/A DVANTAGE - PPO) [id number] Kandis Martin [id number] Kandis Martin Notes Date Note Type Note [...] Reviewing results Manjeet Johnson MD [address], [place], [address], [facility] 09/01/2025 14:26:39 OBGyn Episode No OBEpisode recorded.
--- OUTSIDE RECORDS SUMMARY | 2025-10-01 07:00 | XMS_ITS | Encounter Summary ---
Author Organization [facility] Address [address] [place] [address] Care Team Providers Care Skilled Nursing Facility Counselor Name Role Phone Christelle Chambers MD Primary Care Provider [phone]- [phone] Encounter Details Date Type Department Care Team ([facility] Contact Info) Description 03/31/2020 Prep for Procedure [facility] [address] [place] [id number] Orestes Mena MD [address] [place] [address] Social History Tobacco Use Types Packs/Day [...] Description 04/01/2026 11:20 AM CDT Office Visit [facility] [address] [address] Antonina Erickson, NADIYA [address] [facility] [address] [place] [address] documented as of this encounter Visit Diagnoses Diagnosis Preop testing- Primary Preoperative examination, unspecified documented in this encounter Additional Health Concerns Infection Onset Date Last Indicated Resolved Time COVID-19 Rule Out 04/07/2020 04/07/2020 04/07/2020 2:28 PM CDT documented as of this encounter Care Teams Skilled Nursing Facility Counselor Relationship Specialty Start Date End Date Christelle Chambers MD [address] [facility] [address] [place] [address] PCP - General 02/27/17 documented as of this encounter
== END 2025-10-01 06:56 | disposition home or self-care (01) ==
PROVIDERS: PCP Family Medicine
DX: R22.41 Localized swelling, mass and lump, right lower limb (principal)
CPT/HCPCS: 73720; A9577